=== PATIENT | female | born 1955 | race African-American/Black ===

== ENCOUNTER 2020-05-09 11:55 | Outpatient (CLI) | payer MEDICARE, MEDICAID, SELFPAY ==
--- NOTE | ~2020-05-09 | MM_ITS ---
EXAMINATION: MM screening anna BI w ольга HISTORY: Screening TECHNIQUE: Craniocaudal and mediolateral oblique 3-D tomosynthesis images were obtained and synthetic 2-D images were generated. CAD analysis was submitted and interpreted. COMPARISON: No prior mammogram is available for comparison at this institution. BREAST PARENCHYMAL COMPOSITION: There are scattered areas of fibroglandular density. FINDINGS: There are benign-appearing bilateral axillary lymph nodes. There is no evidence of suspicio us mass, calcification, or architectural distortion to suggest malignancy in either breast. There has been no suspicious interval change. IMPRESSION: 1. No mammographic evidence of malignancy. 2. Recommend routine screening mammography in one year. BI-RADS Category 1: Negative Reviewed, dictated and finalized at location D.
== END 2020-05-09 11:56 | disposition home or self-care (01) ==
PROVIDERS: PCP Family Medicine; Visit Provider Family Medicine
DX: Z12.31 Encounter for screening mammogram for malignant neoplasm of breast (principal)
CPT/HCPCS: 77063; 77067

== ENCOUNTER 2022-11-24 17:07 | Emergency (ER) | payer MEDICARE, MEDICAID, SELFPAY ==
[2022-11-24 18:14] VITALS: BP 137/83; PULSE 77; RESP 20; TEMP 36.9; O2SAT 100
--- NOTE | 2022-11-24 20:56 | PC.NURSE ---
Pt called for repeat vitals, no answer
--- NOTE | 2022-11-24 21:57 | PC.NURSE ---
Called at this time to be roomed with no response at this time.
== END 2022-11-24 22:59 | disposition left against medical advice (07) ==
PROVIDERS: PCP Family Medicine
DX: K59.00 Constipation, unspecified (principal)
CPT/HCPCS: 99199

== ENCOUNTER 2023-12-01 19:47 | Observation (INO) | payer MEDICARE, MEDICAID, SELFPAY ==
[2023-12-01] VITALS (14 sets, daily range): BP systolic 111–157; BP diastolic 72–140; PULSE 65–74; RESP 17–24; TEMP 36.4–36.6; O2SAT 93–100
--- NOTE | ~2023-12-01 | XR_ITS ---
EXAMINATION: XR chest 2V Exam Date/Time: 12/01/2023 20:17 COLLECTION OFFICER HISTORY: SOB with exertion Comparison: 11/18/2014; CTPA 11/19/2014. RESULT: Lines, tubes, and devices: None. Lungs and pleura: Moderate diffuse reticular opacities, with irregular groundglass and consolidative opacities, most pronounced in the mid and lower lungs bilaterally. Cardiomediastinal silhouette: Stable. Other: No acute osseous or upper abdominal finding. IMPRESSION: Moderate interstitial edema versus multifocal infection, possibly overlying chronic interstitial/emph ysematous change. Reviewed, dictated and finalized at location K. ECTION OFFICER IMPRESSION: Moderate interstitial edema versus multifocal infection, possibly overlying chr onic interstitial/emphysematous change.
--- NOTE | 2023-12-01 20:01 | ECG_ITS ---
Measurements Intervals [place] Rate: 71 P: 48 WV: 191 QRS: -33 QRSD: 91 T: 74 QT: 367 QTc: 401 Interpretive Statements SINUS RHYTHM MARKED LEFT AXIS DEVIATION [QRS AXIS < -30] NONSPECIFIC T-WAVE ABNORMALITY NO PREVIOUS ECG AVAILABLE FOR COMPARISON Electronically Signed On 12-02-2023 16:25:42 NEWSPAPER LIBRARY MANAGER by Staci Mckinney M.D.
[2023-12-01] MEDS: methylPREDNISolone SOD SUCC 125 MG VIAL IV PUSH (20:49)
[2023-12-01] MEDS: IPRATROPIUM 0.5 MG/ALBUTEROL SULFATE 2.5 MG AMPUL.NEB 3 ML INHALATION (20:55)
--- NOTE | 2023-12-01 20:55 | ED.GENADULT ---
HPI - General Adult General Chief complaint: Shortness of Breath/Dyspnea Stated complaint: sob Time Seen by Provider: 12/01/23 20:15 History of Present Illness HPI narrative: Patient 68-year-old female who presents emergency department with chief complaint of shortness of breath. Patient reports that she has prior history of COPD reports he has increasing shortness of breath. Patient reports she does not wear home oxygen and reports that she was seen elbow [facility] did not feel as though they were doing anything for her and left hospital even though she was offered admission. The patient denies fever reports that she has not had a fever reports that she has not had a productive cough. Related Data Home Medications Medication Instructions Recorded Confirmed albuterol 90 mcg/actuation aerosol 90 mcg inhalation PRN PRN 12/02/23 12/02/23 inhaler Shortness Of Breath Or Wheezing Allergies Allergy/AdvReac Type Severity Reaction Status Date / Time ampicillin Allergy Unknown Unknown Verified 12/02/23 00:34 Review of Systems Review of Systems: A 10 system review of systems was completed on the patient and is negative except for what is stated in the HPI. Nursing and ancillary documentation was reviewed. 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 She raised 3 children who are all healthy. 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 She used to smoke a pack of cigarettes per day but quit smoking in 2012. She denies any significant alcohol use. Code status: DNR/DNI (per patient request) Smoking status: Former smoker Alcohol intake: never Substance use: never Substance use type: does not use Do You Feel Safe in your Home?: Yes Lack of Transportation: YES Lack of Food: Never True Current Housing: I Have Housing Concerned About Future Housing: No Difficulty Paying Gas/Electric Bills: No Difficulty Paying for Meds: No Currently Unemployed: No Education: Grade School Difficulty w/ Childcare or Family Care: No Spiritual care concerns: No Exam Narrative: GENERAL: Well-appearing, well-nourished, and in mild acute respiratory distress. HEAD: Normocephalic, atraumatic. EYES: PERRLA and EOMI. ENT: Nares clear, no rhinorrhea or epistaxis. Mucous membranes moist. NECK: Supple. CHEST: Clear to auscultation. No respiratory distress. HEART: Regular rate and rhythm. No murmur heard. Normal peripheral pulses. ABDOMEN: Soft, nontender, nondistended, normal active bowel sounds. EXTREMITIES: Normal range of motion. No edema. SKIN: Warm, dry, no rash. NEURO: No focal deficits. Alert and oriented x3. PSYCH: Normal mood and affect. Course Vital Signs Vital signs: Vital Signs Temperature 36.4 C 12/01/23 19:56 Pulse Rate 73 12/01/23 19:56 Respiratory Rate 24 H 12/01/23 19:56 Blood Pressure 111/95 H 12/01/23 19:56 Pulse Oximetry 100 12/01/23 19:56 Oxygen Delivery Room Air 12/01/23 19:56 Temperature 37.1 C 12/02/23 00:13 Pulse Rate 72 12/02/23 02:13 Respiratory Rate 20 12/02/23 02:13 Blood Pressure 140/98 H 12/02/23 00:13 Pulse Oximetry 1
[2023-12-01 21:07] LABS: Basophils Percent Auto 0.5 % (0.2-1.2); Eosinophils Absolute Auto 0.2 K/mm3 (0-0.3); Eosinophils Percent Auto 5.9 % (0-4.4); Hematocrit 31.5 % (37.0-47.0); Hemoglobin 9.8 g/dL (12.0-15.0); Immature Granulocyte Absolute 0.01 K/mm3 (0.00-0.031); Immature Granulocyte Percent A 0.3 % (0-0.5); Lymphocytes Absolute Auto 1.57 K/mm3 (0.9-3.2); Lymphocytes Percent Auto 42.2 % (18.3-44.2); Mean Corpuscular HGB Conc 31.1 g/dl (32-36); Mean Corpuscular Hemoglobin 31.6 pg (26-34); Mean Corpuscular Volume 101.6 fl (80-100); Mean Platelet Volume 9.9 fl (7.4-10.4); Monocytes Absolute Auto 0.4 K/mm3 (0.1-0.6); Monocytes Percent Auto 11.3 % (2.6-8.5); Neutrophils Absolute Auto 1.5 K/mm3 (1.3-6.7); Neutrophils Percent Auto 39.8 % (45.5-73.1); Platelet Count Result 232 k/mm3 (150-375); White Blood Count 3.7 K/mm3 (4.5-10.0)
[2023-12-01 21:17] LABS: Alanine Aminotransferase 45 U/L (6-35); Albumin Level 3.9 g/dL (3.5-5.1); Alkaline Phosphatase 94 U/L (38-126); Anion Gap 8 mmol/L (8-16); Aspartate Amino Transferase 54 U/L (14-36); Bilirubin,Total 0.6 mg/dL (0.2-1.3); Blood Urea Nitrogen 50 mg/dL (7-17); Calcium 9.2 mg/dL (8.4-10.2); Carbon Dioxide 16 mmol/L (22-30); Chloride 112 mmol/L (98-107); Estimated CRCL calculation 24 ml/min; Estimated Glomerular Filt Rate 39; Glucose 125 mg/dL (65-110); Potassium 4.4 mmol/L (3.4-5.0); Sodium 136 mmol/L (137-145)
[2023-12-01 21:32] LABS: NT Pro B Type Natriuretic Pept 233 pg/mL (19.9-100); Troponin I < 0.012 ng/mL (0.000-0.034)
[2023-12-01 21:45] LABS: Influenza A QL RT-PCR Negative (Negative); Influenza B QL RT-PCR Negative (Negative); RSV RNA, RT-PCR Negative (Negative); SARS-CoV-2 RNA PCR Negative (Negative)
[2023-12-01 22:02] LABS: Appearance Urine Cloudy (Clear); Bacteria Urine 2+ /hpf; Bilirubin Urine Negative (Negative); Blood Urine Negative (Negative); Color Urine Yellow (Yellow); Glucose Urine UA Negative (Negative); Ketones Urine Negative (Negative); Leukocyte Esterase Ur 3+ LEU/UL (Negative); Need Manual Microscopic Reviewed; Nitrate Urine Negative (Negative); Protein Urine Negative (Negative); RBC Urine 0-2 /hpf (0-2); Specific Grav Ur 1.015 (1.001-1.035); Squamous Epithelial Cell Urine Few /hpf (Few); Urobilinogen Urine 0.2 mg/dL (<2.0); WBC Urine 51-100 /hpf; pH Urine 5.5 (5.0-9.0)
[2023-12-01 22:04] LABS: Add Urine Microscopic? YES
--- NOTE | 2023-12-01 22:51 | PM.IMHP ---
H&P: HPI History of Present Illness Date/Time: 12/01/23 22:51 Chief Complaint: Shortness of breath Narrative: 68-year-old female with past medical history of COPD, chronic kidney disease and essential hypertension who presented to ER with shortness of breath on exertion. The patient had just been to [facility] ER and had left against medical advice When they wanted to admit her because she felt like they were not doing anything for her. She arrived to the ER tachypneic the nursing staff put on oxygen for comfort. The patient reports that she has been having a cough for approximately 2 weeks. The cough is been hacking and dry. However she will cough until the point that she gags. She reports that she has thick mucus in the back of her throat that she cannot get up. She has not had any fevers or chills. She denies any ill contacts. The her viral PCRs in the ER were negative. She reports that she has been having decreased appetite since September. She reports significant weight loss. She denies any history of heart failure lower extremity swelling or chest pain. Denies heart history. She reports decreased bowel movements due to decreased appetite. She denies any active constipation. She denies difficulties with urination urine is frequency or urgency. She has not had any urinary incontinence. The patient had been evaluated at [facility] earlier in the day. She left hospital against medical advice at that time because they were only offering her a 24 hour hospital stay and decided to come to our hospital because it is the hospital where her son is usually hospitalized. She is usually evaluated at [facility] when she has any problems. The patient does not know her home medications. She does not want to call her son to get the list of medications that she left in his car. There are no medications listed on the patient's external med history. Patient reports that she is on a cholesterol med a blood pressure med and multiple inhalers. Review of Systems Review of Systems: 12 systems were reviewed with pertinent positives and negatives per HPI. Except as documented in the HPI, all other systems were reviewed and are negative. [facility] Past Medical History Medical History (Updated 12/02/23 @ 04:45 by Lauryn Reyna DO) Anemia in chronic kidney disease Stage II per the patient's report COPD (chronic obstructive pulmonary disease) CVA (cerebral vascular accident) (2005) Residual right-sided weakness Eczema Essential hypertension Hyperlipidemia Surgical History Surgical History (Updated 12/02/23 @ 04:45 by Lauryn Renya DO) History of 3 sections History of bilateral knee replacement 2015 and 2018 respectively History of tonsillectomy Family History Family History (Updated 12/02/23 @ 04:39 by Lauryn Reyna DO) Mother Asthma Father Family history unknown Social History Social History (Updated 12/02/23 @ 04:40 by Lauryn Reyna DO) Social History: Patient is single is never been . She raised 3 children who are all healthy. 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 She used to smoke a pack of cigarettes per day but quit smoking in 2012. She denies any significant alcohol use. Code status: DNR/DNI (per patient request) Smoking status: Former smoker Alcohol intake: never Substance use: never Substance use type: does not use Do You Feel Safe in your Home?: Yes Lack of Transportation: YES Lack of Food: Never True Current Housing: I Have Housing Concerned About Future Housing: No Difficulty Paying Gas/Electric Bills: No Difficulty Paying for Meds: No Currently Unemployed: No Education: Grade School Difficulty w/ Childcare or Family Care: No Spiritual care concerns: No Meds Home Medications and Allergies Home Medications Medication Instructions Recorded
[2023-12-01 23:40] LABS: Troponin I < 0.012 ng/mL (0.000-0.034)
[2023-12-01] MEDS: AZITHROMYCIN 500 MG/NS 250 ML 500 MG/250 ML BAG 250 MG IVPB (23:43)
[2023-12-02] VITALS (11 sets, daily range): BP systolic 140–160; BP diastolic 86–98; PULSE 68–85; RESP 16–20; TEMP 36.6–37.1; O2SAT 96–100; BMI 24.2
[2023-12-02 00:02] LABS: Procalcitonin 0.3 ng/mL
--- NOTE | 2023-12-02 00:12 | ADMGEN ---
This patient, Susan Vang, was admitted to 2 Medical Room 242-01. Patient/family oriented to hospital policies and general routines including ID bracelet, bed and alarms, visiting hours, pain management, procedures, bathroom and other care routines, personal items, smoking policy, room service/diet, and visiting hours. Information on how to activate the Rapid Response Team has been discussed. Patient/Family are encouraged to report perceived risks to care and to ask questions if they do not understand what they are told or what they should do.
--- NOTE | 2023-12-02 00:37 | PC.NURSE ---
Pt is unable to recall medications. Pt stated that she gets her medications from [facility] but there are no medications listed on the external medication hx.
[2023-12-02] MEDS: IPRATROPIUM 0.5 MG/ALBUTEROL SULFATE 2.5 MG AMPUL.NEB 3 ML INHALATION ×3 (02:06→13:42)
[2023-12-02] MEDS: SODIUM CHLORIDE 0.9% IV 1,000 ML 100 ML IV CONT (02:46)
[2023-12-02] MEDS: methylPREDNISolone SOD SUCC 125 MG VIAL 60 MG IV PUSH ×2 (05:29→14:12)
[2023-12-02 06:20] LABS: Alanine Aminotransferase 43 U/L (6-35); Albumin Level 3.6 g/dL (3.5-5.1); Alkaline Phosphatase 95 U/L (38-126); Anion Gap 8 mmol/L (8-16); Aspartate Amino Transferase 52 U/L (14-36); Bilirubin,Total 0.3 mg/dL (0.2-1.3); Blood Urea Nitrogen 46 mg/dL (7-17); Calcium 8.9 mg/dL (8.4-10.2); Carbon Dioxide 17 mmol/L (22-30); Chloride 114 mmol/L (98-107); Estimated CRCL calculation 26 ml/min; Estimated Glomerular Filt Rate 42; Glucose 165 mg/dL (65-110); Sodium 139 mmol/L (137-145)
[2023-12-02 07:24] LABS: Hepatitis B Surface Antigen Negative (Negative)
[2023-12-02 07:29] LABS: HAV RESULT Negative (Negative); Hepatitis B Core IgM Result Negative (Negative)
[2023-12-02 07:35] LABS: Hemoglobin 8.7 g/dL (12.0-15.0); Lymphocytes Absolute Auto 0.83 K/mm3 (0.9-3.2); Lymphocytes Percent Auto 37.1 % (18.3-44.2); Mean Corpuscular HGB Conc 31.1 g/dl (32-36); Mean Corpuscular Hemoglobin 31.8 pg (26-34); Mean Corpuscular Volume 102.2 fl (80-100); Mean Platelet Volume 9.9 fl (7.4-10.4); Monocytes Absolute Auto 0.1 K/mm3 (0.1-0.6); Monocytes Percent Auto 2.2 % (2.6-8.5); Neutrophils Absolute Auto 1.4 K/mm3 (1.3-6.7); Neutrophils Percent Auto 60.7 % (45.5-73.1); Platelet Count Result 215 k/mm3 (150-375); Red Blood Count 2.74 M/mm3 (4.2-5.4); Red Cell Distribution Width 16.6 % (11.5-14.5); White Blood Count 2.2 K/mm3 (4.5-10.0)
[2023-12-02 07:41] LABS: Hepatitis C Virus Antibody Negative (Negative)
[2023-12-02 08:57] LABS: Hemoglobin A1C 5.4 % (<5.7)
[2023-12-02] MEDS: ENOXAPARIN 30 MG/0.3 ML SYRINGE SUB-Q (10:08)
--- NOTE | 2023-12-02 14:01 | PM.DS ---
DS: Admitting Diagnosis Discharge Date 12/02/23 Admitting Diagnosis COPD exacerbation DS: Discharge Diagnosis Discharge Diagnosis (1) COPD (chronic obstructive pulmonary disease): Code(s): J44.9 - Chronic obstructive pulmonary disease, unspecified Status: Acute (2) Leukopenia: Qualifiers: Leukopenia type: neutropenia Neutropenia type: due to infection Qualified Code(s): D70.3 - Neutropenia due to infection Code(s): D72.819 - Decreased white blood cell count, unspecified Status: Acute (3) Acute kidney injury: Code(s): N17.9 - Acute kidney failure, unspecified Status: Acute (4) Abnormal urinalysis: Code(s): R82.90 - Unspecified abnormal findings in urine Status: Acute DS: Summary Hospital Course Hospital Course: 68-year-old female with past medical history of COPD, chronic kidney disease and essential hypertension who presented to ER with shortness of breath on exertion.? The patient had just been to [facility] ER and had left against medical advice? When they wanted to admit her because she felt like they were not doing anything for her.? She arrived to the ER tachypneic the nursing staff put on oxygen for comfort.? She was not hypoxic upon arrival nor has she been during hospital stay.The patient reports that she has been having a cough for approximately 2 weeks.? The cough is been hacking and dry. her viral PCRs were negative Patient was given IV steroids, antibiotics and nebulizer treatments. He patient states that she had not been taking her at home inhalers during her acute illness. Patient states that condition overall improved after nebulizer treatments and steroid. Patient not requiring oxygen at this time. Will discharge patient on antibiotics, steroids and cough medicine. Urine was abnormal but patient did not have any signs of UTI. Will call patient if antibiotics need to be changed. Her labs and vital signs are stable and she is medically clear for discharge at this time. Time Spent with Patient Time attestation: Total time spent providing and/or coordinating discharge services: DS: Data Data Completed and Pending Labs on day of discharge: Labs from last 24 hours 12/02/23 12/01/23 12/01/23 05:21 23:10 22:46 WBC 2.2 L RBC 2.74 L Hgb 8.7 L Hct 28.0 L MCV 102.2 H MCH 31.8 MCHC 31.1 L RDW 16.6 H Plt Count 215 MPV 9.9 Immature Gran % (Auto) 0.0 Neut % (Auto) 60.7 Lymph % (Auto) 37.1 Martin % (Auto) 2.2 L Eos % (Auto) 0.0 Baso % (Auto) 0.0 L Lymph # (Auto) 0.83 L Martin # (Auto) 0.1 Eos # (Auto) 0.0 Baso # (Auto) 0.0 Abs Immat Gran (auto) 0.00 Absolute Neuts (auto) 1.4 Absolute Nucleated RBC 0.0 Nucleated RBC % 0.0 Sodium 139 Potassium 5.0 Chloride 114 H Carbon Dioxide 17 L Anion Gap 8 BUN 46 H Creatinine 1.50 H Estim Creat Clear Calc 26 Estimated GFR 42 L Glucose 165 H Hemoglobin A1c 5.4 Lactic Acid 1.0 Calcium 8.9 Total Bilirubin 0.3 AST 52 H ALT 43 H Alkaline Phosphatase 95 Troponin I < 0.012 NT-Pro-B Natriuret Pep Total Protein 9.0 H Albumin 3.6 Procalcitonin 0.3 Urine Color Urine Appearance Urine pH Ur Specific [place] Urine Protein Urine Glucose (UA) Urine Ketones Ur Blood (Man) Urine Nitrate Urine Bilirubin Urine Urobilinogen Add Ur Microanalysis Leukocyte Esterase Rfl Urine RBC Urine WBC Ur Squamous Epith Cells Urine Bacteria Urine Casts Hepatitis A IgM Ab Negative Hep Bs Antigen Negative Hep B Core IgM Ab Negative Hepatitis C Ab Screen Negative Influenza A (RT-PCR) Influenza B (RT-PCR) RSV (RT-PCR) SARS-CoV-2 RNA (RT-PCR) 12/01/23 12/01/23 21:46 20:42 WBC 3.7 L RBC 3.10 L Hgb 9.8 L Hct 31.5 L MCV 101.6 H MCH 31.6 MCHC 31.1 L RDW 17.0 H Plt Count
[2023-12-02] MEDS: AMOXICILLIN/CLAVULANATE K 875-125 MG TAB 1 TABLET PO (14:13)
--- NOTE | 2023-12-03 09:53 | PC.NURSE ---
Urine cx is negative. IZZY Ceron aware.
== END 2023-12-02 19:45 | disposition home or self-care (01) ==
LOC: ANHED 22:27 → ANH2MED 12-02 14:06
PROVIDERS: Internal Medicine Critical Care Medicine; Preventive Medicine Aerospace Medicine; Admitting Provider Internal Medicine; Emergency Provider Emergency Medicine; PCP Internal Medicine; Visit Provider Family Medicine
DX: J44.9 Chronic obstructive pulmonary disease, unspecified (principal); D70.3 Neutropenia due to infection; N17.9 Acute kidney failure, unspecified; R82.90 Unspecified abnormal findings in urine; I12.9 Hypertensive chronic kidney disease with stage 1 through stage 4 chronic kidney disease, or unspecified chronic kidney disease; N18.2 Chronic kidney disease, stage 2 (mild); R63.0 Anorexia; I69.351 Hemiplegia and hemiparesis following cerebral infarction affecting right dominant side; D63.1 Anemia in chronic kidney disease; R94.31 Abnormal electrocardiogram [ECG] [EKG]; Z68.24 Body mass index [BMI] 24.0-24.9, adult; E78.5 Hyperlipidemia, unspecified; Z79.51 Long term (current) use of inhaled steroids; Z20.822 Contact with and (suspected) exposure to COVID-19; Z87.891 Personal history of nicotine dependence
CPT/HCPCS: 36415; 71046; 80053; 80074; 81001; 83036; 83605; 83880; 84145; 84484; 85025; 87040; 87077; 87086; 87637; 93005; 94640; 96361; 96372; 96374; 96375; 96376; 99285; A9270; G0378; J0456; J0696; J1650; J2930; J7030

== ENCOUNTER 2024-09-02 00:51 | Inpatient (IN) | payer MEDICARE, MEDICAID, SELFPAY ==
[2024-09-02] VITALS (30 sets, daily range): BP systolic 125–190; BP diastolic 53–94; PULSE 74–125; RESP 18–30; TEMP 36.4–37.1; O2SAT 84–100; BMI 19.8
--- NOTE | ~2024-09-02 | XR_ITS ---
XR chest 1V portable DATE: 09/03/2024 12:29 INDICATION: Shortness of breath TECHNIQUE: Portable upright AP chest on 09/03/2024 at 1216 hours COMPARISON: 09/02/2024 and 12/01/2023 chest radiographic examinations FINDINGS: Extensive bilateral patchy interstitial infiltrates of the lungs, much of which is chronic, present on 11/11/2023, suggesting extensive bilateral pulmonary interstitial fibrotic changes. Mild increase bilateral infiltrates since 12/01/2023 may represent progression of the extensive interstitia l fibrotic changes versus overlapping pneumonia or less likely pulmonary edema. Minimal blunted costophrenic angles; cannot exclude small pleural effusions. No pneumothorax. Heart size appears within normal range for AP projection. Osteopenia. IMPRESSION: Extensive chronic bilateral patchy interstitial changes suggesting extensive chronic bila teral pulmonary interstitial fibrosis. Superimposed pneumonia is not excluded. Clinical correlation i s advised. Reviewed, dictated and finalized at location A. [facility] IMPRESSION: Extensive chronic bilateral patchy interstitial changes suggesting extensive chronic bilateral pulmonary interstitial fibrosis. Superimposed pneum onia is not excluded. Clinical correlation is advised.
--- NOTE | ~2024-09-02 | XR_ITS ---
XR chest 1V portable DATE: 09/02/2024 02:22 INDICATION: Dyspnea TECHNIQUE: Portable AP chest on 09/02/2024 at 0220 hours COMPARISON: 12/01/2023 2 view chest FINDINGS: There are diffuse bilateral pulmonary interstitial infiltrates with some focal areas of con solidation, most prominent in the left mid and lower lung zones. The findings may be due to bilateral pneumonia and/or pulmonary edema. Heart size appears within normal range. Is aortic unfolding. No pleural effusion or pneumothorax is evident. Osteopenia. IMPRESSION: Diffuse bilateral pulmonary infiltrates suggesting pneumonia and/or pulmonary edema Reviewed, dictated and finalized at location A. [employer]
--- NOTE | ~2024-09-02 | CT_ITS ---
EXAMINATION:CT diagnostic chest wo con DATE: 09/04/2024 13:00 INDICATION: Abnormal chest radiograph. TECHNIQUE: Computed tomography (CT) of the chest was performed without intravenous contrast. Automate d exposure control and iterative reconstruction technique were employed. The dose-length product (DLP ) was 215.03 mGy-cm. COMPARISON: Chest single view 09/03/2024, chest CT 11/19/2014 FINDINGS: The lung volumes are small. There is heterogeneous distribution of septal thickening in the lungs associated with groundglass opacities and bronchiectasis and honeycombing. Calcified pulmonary nodules and calcified hilar lymph nodes are consistent with old granulomatous disease. There is a tr sb left pleural effusion. The heart size is normal. There are coronary artery calcifications. No per icardial effusion. There is mild mediastinal lymphadenopathy, likely reactive. Calcifications in the liver and spleen are consistent with old granulomatous disease. There are gallstones in the gallbladd er, which is normal in size. There is moderate thoracic spondylosis and severe cervical spondylosis. IMPRESSION: 1. Chronic interstitial lung disease in a pattern of usual interstitial pneumonia (UIP). Reviewed, dictated and finalized at location A. [facility] PET CT TECHNOLOGIST IMPRESSION: 1. Chronic interstitial lung disease in a pattern of usual interstitial pneumon ia (UIP).
--- NOTE | 2024-09-02 01:04 | ECG_ITS ---
Test Date: 2024-09-02 01:12:32 Measurements Intervals [place] Rate: 111 P: 33 UT: 156 QRS: -51 QRSD: 91 T: 83 QT: 297 QTc: 404 Interpretive Statements SINUS TACHYCARDIA LEFT AXIS DEVIATION PATTERN CONSISTENT WITH PULMONARY DISEASE BORDERLINE ST-T WAVE ABNORMALITY- HIGH LATERAL LEADS BASELINE ARTIFACT- I, II, III, AVR, AVL, AVF, V1-V6 ABNORMAL ECG No previous ECG available for comparison Electronically Signed On 09-02-2024 06:10:21 ENTERTAINER OR VARIETY ARTIST by Guido Campos D.O.
[2024-09-02] MEDS: IPRATROPIUM 0.5 MG/ALBUTEROL SULFATE 2.5 MG AMPUL.NEB 3 ML INHALATION ×4 (01:22→20:43)
[2024-09-02 01:42] LABS: Alveolar/Arterial O2 Gradient 87.3 mmHg; Base Excess ABG -4.3 mEq/l (+/-2.0); Fractional Inspired Oxygen 28 %; HCO3 ABG 18.5 mEq/l (22.0-26.0); Oxygen Content ABG 14.5 %vol (16.0-22.0); Oxygen Saturation ABG 96.5 % (95.0-100.0); Oxyhemoglobin 94.7 % THb (90.0-100.0); PCO2 ABG 27.2 mmHg (35.0-45.0); PO2 ABG 80.2 mmHg (80.0-100.0); PO2 FiO2 Ratio Arterial Blood 2.86 %; Total Hemoglobin 10.8 g/dL (12.0-18.0); pH ABG 7.451 (7.350-7.450)
[2024-09-02 01:43] LABS: Device NASAL CANNULA; Modified Allen's Test Pass; Site Drawn RIGHT RADIAL
--- NOTE | 2024-09-02 01:59 | ED_ITS ---
HPI - General Adult General Chief complaint: Shortness of Breath/Dyspnea Stated complaint: Short of breath Time Seen by Provider: 09/02/24 01:15 History of Present Illness HPI narrative: patient is a 69-year-old female who presents emergency department with chief complaint of shortness of breath and generalized weakness patient has prior history of COPD reports she has been having a cough and has had problems with increasing shortness of breath over the last several days patient reports that she feels extremely short of breath this evening reports that family says that she has been weaker than normal over the last couple of days Related Data Home Medications Medication Instructions Recorded Confirmed albuterol 90 mcg/actuation aerosol 90 mcg inhalation PRN PRN 12/02/23 12/02/23 inhaler Shortness Of Breath Or Wheezing Allergies Allergy/AdvReac Type Severity Reaction Status Date / Time ampicillin Allergy Unknown Unknown Verified 09/02/24 00:52 Review of Systems Review of Systems: A 10 system review of systems was completed on the patient and is negative except for what is stated in the HPI. Nursing and ancillary documentation was reviewed. [facility] Past Medical History Medical History Anemia in chronic kidney disease Stage II per the patient's report COPD (chronic obstructive pulmonary disease) CVA (cerebral vascular accident) (2005) Residual right-sided weakness Eczema Essential hypertension Hyperlipidemia Surgical History Surgical History History of 3 sections History of bilateral knee replacement 2015 and 2017 respectively History of tonsillectomy Family History Family History Mother Asthma Father Family history unknown Social History Social History Social History: Patient is single is never been . She raised 3 children who are all healthy. 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 She used to smoke a pack of cigarettes per day but quit smoking in 2012. She denies any significant alcohol use. Code status: DNR/DNI (per patient request) Smoking status: Former smoker Alcohol intake: never Substance use: never Substance use type: does not use Do You Feel Safe in your Home?: Yes Lack of Transportation: YES Lack of Food: Never True Current Housing: I Have Housing Concerned About Future Housing: No Difficulty Paying Gas/Electric Bills: No Difficulty Paying for Meds: No Currently Unemployed: No Education: Grade School Difficulty w/ Childcare or Family Care: No Spiritual care concerns: No Exam Narrative: GENERAL: Well-appearing, well-nourished, and in no acute distress. HEAD: Normocephalic, atraumatic. EYES: PERRLA and EOMI. ENT: Nares clear, no rhinorrhea or epistaxis. Mucous membranes moist. NECK: Supple. CHEST: Clear to auscultation. No respiratory distress. HEART: Regular rate and rhythm. No murmur heard. Normal peripheral pulses. ABDOMEN: Soft, nontender, nondistended, normal active bowel sounds. EXTREMITIES: Normal range of motion. No edema. SKIN: Warm, dry, no rash. NEURO: No focal deficits. Alert and oriented x3. PSYCH: Normal mood and affect. Course Vital Signs Vital signs: Vital Signs Pulse Oximetry 95 09/02/24 01:00 Oxygen Delivery Nasal Cannula 09/02/24 01:00 Oxygen Flow Rate 3 09/02/24 01:00 Temperature 37.1 C 09/02/24 01:03 Pulse Rate 101 H 09/02/24 03:28 Respiratory Rate 25 H 09/02/24 03:28 Blood Pressure 165/94 H 09/02/24 03:28 Pulse Oximetry 95 09/02/24 03:28 Oxygen Delivery Room Air 09/02/24 01:03 Oxygen Flow Rate 3 09/02/24 01:00 Medical Decision Making [facility] Narrative Medical decision making narrative: differential diagnosis includes COPD exacerbation, pneumonia, CHF, viral illness, renal failure laboratory studies were obtained on the patient showed a VBG with pH 7.451 a pCO2 of 27.2 PO2 was 80 EKG showed no acute ischemic changes Vital Signs Vital Signs: Vital Signs Pulse Oximetry 95 09/02/24 01:00 Oxygen Delivery Nasal Cannula 09/02/24 01:00 Oxygen Flow Rate 3 09/02/24 01:00 Temperature 37.1 C 09/02/24 01:03 Pulse Rate 101 H 09/02/24 03:28 Respiratory Rate 25 H 09/02/24 03:28 Blood Pressure 165/94 H 09/02/24 03:28 Pulse Oximetry 95 09/02/24 03:28 Oxygen Delivery Room Air 09/02/24 01:03 Oxygen Flow Rate 3 09/02/24 01:00 Lab Data 09/02/24 02:06 09/02/24 02:55 Labs: Lab Results 09/02/24 09/02/24 09/02/24 Range/Units 02:06 02:55 03:13 WBC 5.1 (4.5-10.0) K/mm3 RBC 2.77 L (4.2-5.4) M/mm3 Hgb 9.6 L (12.0-15.0) g/dL Hct 29.6 L (37.0-47.0) % MCV 106.9 H (80-100) fl MCH 34.7 H (26-34) pg MCHC 32.4 (32-36) g/dl RDW 13.2 (11.5-14.5) % Plt Count 188 (150-375) k/mm3 MPV 10.1 (7.4-10.4) fl Immature Gran % (Auto) 0.6 H (0-0.5) % Neut % (Auto) 56.8 (45.5-73.1) % Lymph % (Auto) 25.8 (18.3-44.2) % [place] % (Auto) 10.7 H (2.6-8.5) % Eos % (Auto) 5.5 H (0-4.4) % Baso % (Auto) 0.6 (0.2-1.2) % Lymph # (Auto) 1.32 (0.9-3.2) K/mm3 [place] # (Auto) 0.6 (0.1-0.6) K/mm3 Eos # (Auto) 0.3 (0-0.3) K/mm3 Baso # (Auto) 0.0 (0.0-0.1) K/mm3 Abs Immat Gran (auto) 0.03 (0.00-0.031) K/mm3 Absolute Neuts (auto) 2.9 (1.3-6.7) K/mm3 Absolute Nucleated RBC 0.000 (0.0-0.012) K/mm3 Nucleated RBC % 0.0 (0.0-0.2) % Platelet Estimate Adequate (Adequate) Ovalocytes 1+ Schistocytes None seen PT 15.8 H (11.1-14.7) Seconds INR 1.2 APTT 34.7 (22.3-36.8) Seconds Sodium Cancelled 135 L Potassium Cancelled 4.6 Chloride Cancelled 108 H Carbon Dioxide Cancelled 19 L Anion Gap Cancelled 8 BUN Cancelled 52 H Creatinine Cancelled 2.40 H Estim Creat Clear Calc Cancelled 16 Estimated GFR Cancelled 24 L Glucose Cancelled 102 Lactic Acid 1.1 (0.7-2.0) mmol/L Calcium Cancelled 8.8 Total Bilirubin Cancelled 0.7 AST Cancelled 34 ALT Cancelled 13 Alkaline Phosphatase Cancelled 114 Troponin I < 0.012 (0.000-0.034) ng/mL NT-Pro-B Natriuret Pep 759 H (19.9-100) pg/mL Total Protein Cancelled 9.0 H Albumin Cancelled 3.6 Procalcitonin 0.5 ng/mL Influenza A (RT-PCR) Pending Influenza B (RT-PCR) Pending RSV (RT-PCR) Pending SARS-CoV-2 RNA (RT-PCR) Pending ABG Data ABG results: 09/02/24 01:21 Puncture Site Right radial ABG pH 7.451 H ABG pCO2 27.2 L ABG pO2 80.2 ABG PO2/FiO2 Ratio 2.86 ABG HCO3 18.5 L ABG O2 Saturation 96.5 ABG O2 Content 14.5 L ABG Base Excess -4.3 A-a Gradient 87.3 Oxyhemoglobin 94.7 Total Hemoglobin 10.8 L O2 Delivery Device Nasal cannula O2 Liters/Min 2.0 FiO2 28 Discharge Plan Discharge Clinical Impression: Acute exacerbation of chronic obstructive pulmonary disease Patient Disposition: Still a Patient Condition: Stable Prescriptions: No Action albuterol 90 mcg/actuation Aerosol 90 mcg INHALATION PRN PRN (Reason: Shortness Of Breath Or Wheezing) azithromycin 250 mg tablet 250 mg PO DAILY Qty: 4 0RF cefdinir 300 mg capsule 300 mg PO Q12H Qty: 12 0RF Follow-up/Referrals: Familia,eRji Smith MD [Primary Care Provider] - Time of Disposition: 03:37
[2024-09-02 02:15] LABS: Basophils Percent Auto 0.6 % (0.2-1.2); Eosinophils Absolute Auto 0.3 K/mm3 (0-0.3); Eosinophils Percent Auto 5.5 % (0-4.4); Hematocrit 29.6 % (37.0-47.0); Hemoglobin 9.6 g/dL (12.0-15.0); Immature Granulocyte Absolute 0.03 K/mm3 (0.00-0.031); Immature Granulocyte Percent A 0.6 % (0-0.5); Lymphocytes Absolute Auto 1.32 K/mm3 (0.9-3.2); Lymphocytes Percent Auto 25.8 % (18.3-44.2); Mean Corpuscular HGB Conc 32.4 g/dl (32-36); Mean Corpuscular Hemoglobin 34.7 pg (26-34); Mean Corpuscular Volume 106.9 fl (80-100); Mean Platelet Volume 10.1 fl (7.4-10.4); Monocytes Absolute Auto 0.6 K/mm3 (0.1-0.6); Monocytes Percent Auto 10.7 % (2.6-8.5); Neutrophils Absolute Auto 2.9 K/mm3 (1.3-6.7); Neutrophils Percent Auto 56.8 % (45.5-73.1); Platelet Count Result 188 k/mm3 (150-375); Red Blood Count 2.77 M/mm3 (4.2-5.4); Red Cell Distribution Width 13.2 % (11.5-14.5); White Blood Count 5.1 K/mm3 (4.5-10.0)
[2024-09-02] MEDS: BENZONATATE 100 MG CAPSULE 200 MG PO (02:20)
[2024-09-02] MEDS: methylPREDNISolone SOD SUCC 125 MG VIAL IV PUSH (02:20)
[2024-09-02 02:26] LABS: Ovalocytes 1+; Platelet Estimate Adequate (Adequate); Schistocytes None Seen
[2024-09-02 02:37] LABS: NT Pro B Type Natriuretic Pept 759 pg/mL (19.9-100); Troponin I < 0.012 ng/mL (0.000-0.034)
[2024-09-02 03:10] LABS: INR 1.2; Lactic Acid Reflex 1.1 mmol/L (0.7-2.0); Prothrombin Time 15.8 Seconds (11.1-14.7)
[2024-09-02 03:11] LABS: Partial Thromboplastin Time 34.7 Seconds (22.3-36.8)
[2024-09-02 03:12] LABS: Alanine Aminotransferase 13 U/L (6-35); Albumin Level 3.6 g/dL (3.5-5.1); Alkaline Phosphatase 114 U/L (38-126); Anion Gap 8 mmol/L (4-12); Aspartate Amino Transferase 34 U/L (14-36); Bilirubin,Total 0.7 mg/dL (0.2-1.3); Blood Urea Nitrogen 52 mg/dL (7-17); Calcium 8.8 mg/dL (8.4-10.2); Carbon Dioxide 19 mmol/L (22-30); Chloride 108 mmol/L (98-107); Estimated CRCL calculation 16 ml/min; Estimated Glomerular Filt Rate 24; Glucose 102 mg/dL (65-110); Potassium 4.6 mmol/L (3.4-5.0); Sodium 135 mmol/L (137-145)
[2024-09-02 03:28] LABS: Procalcitonin 0.5 ng/mL
[2024-09-02 03:52] LABS: Influenza A QL RT-PCR Negative (Negative); Influenza B QL RT-PCR Negative (Negative); RSV RNA, RT-PCR Negative (Negative); SARS-CoV-2 RNA PCR Negative (Negative)
[2024-09-02] MEDS: SODIUM CHLORIDE 0.9% IV 1,000 ML 999 ML IV CONT (04:11)
--- NOTE | 2024-09-02 04:12 | PM.IMHP ---
H&P: HPI History of Present Illness Date/Time: 09/02/24 04:12 Chief Complaint: Shortness of breath Narrative: 69-year-old female with a past medical history of COPD, chronic kidney disease, essential hypertension and noncompliance with medication regimen who presented to the ER with shortness of breath. Patient is a poor historian due to confusion. Confusion is a new finding compared to when I last saw the patient in November of 2023. The patient reports that she has been coughing for about a week. She has been getting more more short of breath with more severe symptoms this evening. She reports producing yellow sputum. It is unclear if she always produces yellow sputum for the sputum color changes different. But nursing staff reports the patient has copious sputum production and is coughing a significant amount of sputum into an emesis bag. The patient reports that she is chronically chilled but at the time of my evaluation the patient's skin was noticeably hot. It sounds as if the patient stop taking a lot of her medications because she felt that the number of medications were causing her nausea and GI upset. The patient's weight has decreased 11 kg since her last hospital stay. She reports that she has no appetite. She states that if she does try to take medications they make her stomach even more upset than it is at baseline. She denies any hematochezia, melena or coffee-ground emesis. She reports chest pain with deep breathing and with coughing. She denies any rhinorrhea nasal congestion or sore throat. She denies difficulty swallowing. She states that she does not produce much bowel movements due to low appetite. She denies any known ill contacts. Patient is also generally weak. At the time of my evaluation the patient was able to sit up in bed unassisted. She appeared frail had respiratory rate of 33 with accessory muscle use. She denies any wheezing on exam patient marked decreased breath sounds bilaterally. She did test positive for RSV in the ER. Chest x-ray was personally reviewed interpreted and demonstrated acute interstitial findings on top the patient's chronic lung findings. Patient was seen and examined in the ER and was noted to be in respiratory distress. Her oxygen saturations were holding on 3 L nasal cannula but patient is not on oxygen at home. Viral panel was negative for the vanesa pathogens. Blood cultures were obtained and are pending. Electrolyte panel demonstrated acute on chronic kidney disease Review of Systems Review of Systems: Review of systems was difficult to obtain due to the patient's confusion. Patient is only alert oriented to self and place. [facility] Past Medical History Medical History (Updated 09/02/24 @ 07:36 by Lauryn Reyna DO) Anemia in chronic kidney disease Anxiety Chronic kidney disease, stage 3b COPD (chronic obstructive pulmonary disease) CVA (cerebral vascular accident) (2005) Residual right-sided weakness Eczema Essential hypertension Hyperlipidemia Surgical History Surgical History History of 3 sections History of bilateral knee replacement 2015 and 2017 respectively History of tonsillectomy Family History Family History Mother Asthma Father Family history unknown Social History Social History (Updated 09/02/24 @ 07:34 by Lauryn Reyna DO) Social History: Patient is single is never been . She raised 3 children who are all healthy. 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 She used to smoke a pack of cigarettes per day but quit smoking in 2012. She denies any significant alcohol use. Code status: DNR/DNI (per patient request during her hospitalization November 2023) Smoking packs per day: 0.5 Smoking cigarettes per day: 10.0 Years smoked: 35 Smoking pack-years: 17.50 Smoking status: Former smoker Tobacco type: cigarettes Alcohol intake: never Substance use: never Substance use type: does not use Do You Feel Safe in your Home?: Yes Lack of Transportation: No Lack of Food: Never True Current Housing: I Have Housing Concerned About Future Housing: No Difficulty Paying Gas/Electric Bills: No Difficulty Paying for Meds: No Currently Unemployed: No Education: Grade School Difficulty w/ Childcare or Family Care: No Spiritual care concerns: No Meds Home Medications and Allergies Home Medications Medication Instructions Recorded Confirmed Type albuterol sulfate 0.63 mg/3 mL 0.63 mg continuous nebulization BID 09/02/24 09/02/24 History solution for nebulization albuterol sulfate 90 mcg/actuation 2 puff inhalation BID 09/02/24 09/02/24 History aerosol inhaler alendronate 70 mg tablet 70 mg PO WEEKLY 09/02/24 09/02/24 History atorvastatin 20 mg tablet 20 mg PO DAILY 09/02/24 09/02/24 History clopidogrel 75 mg tablet 75 mg PO DAILY 09/02/24 09/02/24 History fluoxetine 40 mg capsule 40 mg PO DAILY 09/02/24 09/02/24 History fluticasone propionate 50 1 spray intranasal BID 09/02/24 09/02/24 History mcg/actuation nasal spray,suspension meclizine 25 mg tablet 25 mg PO PRN PRN Dizziness 09/02/24 09/02/24 History montelukast 10 mg tablet 10 mg PO DAILY 09/02/24 09/02/24 History Allergies Allergy/AdvReac Type Severity Reaction Status Date / Time ampicillin Allergy Unknown Unknown Verified 09/02/24 00:52 Vital Signs Vital Signs - 24 hr 09/02/24 01:03 09/02/24 01:22 09/02/24 02:30 Temperature 98.8 F Pulse Rate 125 H 99 85 Respiratory Rate 24 H 24 H 27 H Blood Pressure 125/86 155/76 H Pulse Oximetry 84 L 96 Oxygen Delivery Room Air Oxygen Flow Rate 09/02/24 01:00 09/02/24 03:28 Temperature Pulse Rate 101 H Respiratory Rate 25 H Blood Pressure 165/94 H Pulse Oximetry 95 95 Oxygen Delivery Nasal Cannula Oxygen Flow Rate 3 Exam Narrative: Weight 48.3 kg BMI 18.9 Const: Other: Acutely ill-appearing, respiratory distress with tachypnea speaking in 2-3 word sentences, thin body habitus with appearance of significant weight loss compared to my prior exam HENMT: Other: Mucous membranes are dry, no oral pharyngeal erythema, significant underbite, fair dentition, head is normocephalic atraumatic, nasal cannula in place Eyes: Other: Pupils are equal and reactive, no scleral icterus, positive conjunctival pallor Neck: Other: No JVD, supple Resp: Other: Accessory muscle use, marked tachypnea, speaking in 2-3 word sentences Cardio: Other: Sinus tachycardia, bounding radial pulses, 2+ bilateral pedal pulses, no murmur GI: Other: Soft, nontender, nondistended, positive bowel sounds Back/Spine/Pelvis: Other: Mild thoracic kyphosis Skin: Other: Hot to touch, non jaundice, no pallor Neuro: Other: Patient is alert oriented to person and place, she is confused as to the month thought that the month was January despite knowing that today was Thanksgiving, she thought the year was 2027, she has no facial asymmetry, she moves all extremities equally, she has intact sensation of all extremities and can sit up in bed unassisted Extrem: Other: No clubbing, cyanosis or edema, moves all extremities equally Psych: Other: Anxious, pleasantly confused, cooperative H&P: Results Labs Labs: Laboratory Tests 09/02/24 02:06 09/02/24 02:55 09/02/24 09/02/24 09/02/24 01:21 02:06 02:55 WBC 5.1 RBC 2.77 L Hgb 9.6 L Hct 29.6 L MCV 106.9 H MCH 34.7 H MCHC 32.4 RDW 13.2 Plt Count 188 MPV 10.1 Immature Gran % (Auto) 0.6 H Neut % (Auto) 56.8 Lymph % (Auto) 25.8 Mason % (Auto) 10.7 H Eos % (Auto) 5.5 H Baso % (Auto) 0.6 Lymph # (Auto) 1.32 Mason # (Auto) 0.6 Eos # (Auto) 0.3 Baso # (Auto) 0.0 Abs Immat Gran (auto) 0.03 Absolute Neuts (auto) 2.9 Absolute Nucleated RBC 0.000 Nucleated RBC % 0.0 Platelet Estimate Adequate Ovalocytes 1+ Schistocytes None seen PT 15.8 H INR 1.2 APTT 34.7 Puncture Site Right radial ABG pH 7.451 H ABG pCO2 27.2 L ABG pO2 80.2 ABG PO2/FiO2 Ratio 2.86 ABG HCO3 18.5 L ABG O2 Saturation 96.5 ABG O2 Content 14.5 L ABG Base Excess -4.3 A-a Gradient 87.3 Oxyhemoglobin 94.7 Total Hemoglobin 10.8 L O2 Delivery Device Nasal cannula O2 Liters/Min 2.0 FiO2 28 Sodium Cancelled 135 L Potassium Cancelled 4.6 Chloride Cancelled 108 H Carbon Dioxide Cancelled 19 L Anion Gap Cancelled 8 BUN Cancelled 52 H Creatinine Cancelled 2.40 H Estim Creat Clear Calc Cancelled 16 Estimated GFR Cancelled 24 L Glucose Cancelled 102 Lactic Acid 1.1 Calcium Cancelled 8.8 Total Bilirubin Cancelled 0.7 AST Cancelled 34 ALT Cancelled 13 Alkaline Phosphatase Cancelled 114 Troponin I < 0.012 NT-Pro-B Natriuret Pep 759 H Total Protein Cancelled 9.0 H Albumin Cancelled 3.6 Procalcitonin 0.5 Influenza A (RT-PCR) Influenza B (RT-PCR) RSV (RT-PCR) SARS-CoV-2 RNA (RT-PCR) 09/02/24 03:13 WBC RBC Hgb Hct MCV MCH MCHC RDW Plt Count MPV Immature Gran % (Auto) Neut % (Auto) Lymph % (Auto) Mason % (Auto) Eos % (Auto) Baso % (Auto) Lymph # (Auto) Mason # (Auto) Eos # (Auto) Baso # (Auto) Abs Immat Gran (auto) Absolute Neuts (auto) Absolute Nucleated RBC Nucleated RBC % Platelet Estimate Ovalocytes Schistocytes PT INR APTT Puncture Site ABG pH ABG pCO2 ABG pO2 ABG PO2/FiO2 Ratio ABG HCO3 ABG O2 Saturation ABG O2 Content ABG Base Excess A-a Gradient Oxyhemoglobin Total Hemoglobin O2 Delivery Device O2 Liters/Min FiO2 Sodium Potassium Chloride Carbon Dioxide Anion Gap BUN Creatinine Estim Creat Clear Calc Estimated GFR Glucose Lactic Acid Calcium Total Bilirubin AST ALT Alkaline Phosphatase Troponin I NT-Pro-B Natriuret Pep Total Protein Albumin Procalcitonin Influenza A (RT-PCR) Negative Influenza B (RT-PCR) Negative RSV (RT-PCR) Negative SARS-CoV-2 RNA (RT-PCR) Negative Assessment and Plan Assessment and plan (1) Community acquired pneumonia: Qualifiers: Laterality: unspecified laterality Qualified Code(s): J18.9 - Pneumonia, unspecified organism Code(s): J18.9 - Pneumonia, unspecified organism Status: Acute (2) Acute hypoxic respiratory failure: Code(s): J96.01 - Acute respiratory failure with hypoxia Status: Acute (3) Acute exacerbation of chronic obstructive pulmonary disease: Code(s): J44.1 - Chronic obstructive pulmonary disease with (acute) exacerbation Status: Acute (4) Severe protein-calorie malnutrition: Code(s): E43 - Unspecified severe protein-calorie malnutrition Status: Acute (5) Acute kidney injury superimposed on stage 3b chronic kidney disease: Code(s): N17.9 - Acute kidney failure, unspecified; N18.32 - Chronic kidney disease, stage 3b Status: Acute Plan Patient has acute hypoxic respiratory failure she has markedly decreased breath sounds bilaterally and does have significant smoking history and history of COPD. I suspect at least some component of COPD exacerbation. Patient was started on scheduled nebulizer treatments and Solu-Medrol in the ER. Patient's chest x-ray also appear to be consistent with pneumonia at the time my evaluation but radiologic interpretation was pending at the time of my evaluation. I suspect there is some acute findings on top of the patient's chronic lung disease. Patient been started empiric antibiotic therapy. Blood cultures have been obtained and are pending. Will wean oxygen as tolerated. The patient is acutely confused likely due to metabolic encephalopathy from acute infection. Will treat underlying cause and monitor. Patient has acute kidney injury on chronic kidney disease likely in part due to hypovolemia and or secondary to but action. Will continue IV fluid hydration and repeat electrolyte panel in a.m.. Will avoid nephrotoxic medications when possible. Patient has severe protein calorie malnutrition. Patient has had 11 kg weight loss since November. Will consult dietitian for nutritional supplement the recommendations. Quality VTE Prophylaxis VTE prophylaxis: pharmacologic ordered (Heparin 5000 units subQ q.12 hours) Hospitalist [facility] Advance Care Plan I have confirmed that the patient's Advanced Care Plan is present, code status is documented, or surrogate decision maker is listed in patient medical record.: Yes Medication Reconciliation I have utilized all available resources to obtain, update and review the patients current medications (includes all prescriptions, OTC, herbals, cannabis, and nutritional supplements).: Yes
[2024-09-02] MEDS: SODIUM CHLORIDE 0.9% IV 1,000 ML 100 ML IV CONT ×2 (05:36→13:48)
[2024-09-02] MEDS: AZITHROMYCIN 500 MG/NS 250 ML 500 MG/250 ML BAG 250 MG IVPB (05:36)
--- NOTE | 2024-09-02 05:39 | ADMGEN ---
This patient, Susan Vang, was admitted to IMU Room 212-01. Patient/family oriented to hospital policies and general routines including ID bracelet, bed and alarms, visiting hours, pain management, procedures, bathroom and other care routines, personal items, smoking policy, room service/diet, and visiting hours. Information on how to activate the Rapid Response Team has been discussed. Patient/Family are encouraged to report perceived risks to care and to ask questions if they do not understand what they are told or what they should do.
[2024-09-02 06:52] LABS: Troponin I < 0.012 ng/mL (0.000-0.034)
[2024-09-02] MEDS: methylPREDNISolone SOD SUCC 125 MG VIAL 60 MG IV PUSH ×3 (09:30→21:25)
[2024-09-02] MEDS: ATORVASTATIN 20 MG TABLET PO (09:31)
[2024-09-02] MEDS: CLOPIDOGREL BISULFATE 75 MG TABLET PO (09:31)
[2024-09-02] MEDS: FLUoxetine HCL 20 MG CAPSULE 40 MG PO (09:31)
[2024-09-02] MEDS: MONTELUKAST SODIUM 10 MG TABLET PO (09:31)
[2024-09-02] MEDS: FLUTICASONE PROPIONATE 0.05% NA SPR 16 GM BTL (*BKC) 1 SPRAY NASAL ×2 (09:32→17:01)
[2024-09-02] MEDS: HEPARIN SODIUM 5,000 UNITS/ML VIAL 5000 UNITS SUB-Q ×2 (09:32→21:25)
--- NOTE | 2024-09-02 13:39 | PM.IMPN ---
Progress Note: A&P Assessment and Plan (1) Community acquired pneumonia: Qualifiers: Laterality: unspecified laterality Qualified Code(s): J18.9 - Pneumonia, unspecified organism Code(s): J18.9 - Pneumonia, unspecified organism Status: Acute (2) Acute hypoxic respiratory failure: Code(s): J96.01 - Acute respiratory failure with hypoxia Status: Acute (3) Acute exacerbation of chronic obstructive pulmonary disease: Code(s): J44.1 - Chronic obstructive pulmonary disease with (acute) exacerbation Status: Acute (4) Severe protein-calorie malnutrition: Code(s): E43 - Unspecified severe protein-calorie malnutrition Status: Acute (5) Acute kidney injury superimposed on stage 3b chronic kidney disease: Code(s): N17.9 - Acute kidney failure, unspecified; N18.32 - Chronic kidney disease, stage 3b Status: Acute Plan This is a 69-year-old female who presents shortness of breath and generalized weakness. She also reports some cough worsening over the past several days associated with increasing shortness of breath in the ED she was noted to be hypoxic requiring oxygen supplementation. Laboratory studies showed WBC of 5.1 hemoglobin of 9.6 creatinine 2.4 baseline of 1.4. P 759 troponin was less than 0.012. Influenza RSV and COVID swab was negative. ABG 7.45/27/80/18. Chest x-ray showed diffuse bilateral pulmonary infiltrates suggesting pneumonia and/or pulmonary edema. History of COPD Patient was started on scheduled nebulizer and Solu-Medrol in the ED. suspected COPD exacerbation with pneumonia. On ceftriaxone azithromycin MYKE on CKD stage 3 IV hydration Chronic anemia DVT prophylaxis heparin subQ Code status do not resuscitate Patient has severe protein calorie malnutrition.Patient has had 11 kg weight loss since November. Dietitian for nutritional supplement the recommendations. Subjective Date/time seen: 09/02/24 13:39 Interval history: No overnight events. Feeling a little better. Still gets short of breath with exertion. Review of Systems Review of Systems: All systems reviewed & are unremarkable except as noted in HPI and below Exam Narrative: GENERAL: Well-appearing, thin built, and in no acute distress. HEAD: Normocephalic, atraumatic. EYES: PERRLA and EOMI. ENT: Nares clear, no rhinorrhea or epistaxis. Mucous membranes moist. NECK: Supple. CHEST: Clear to auscultation. No respiratory distress. HEART: Regular rate and rhythm. No murmur heard. Normal peripheral pulses. ABDOMEN: Soft, nontender, nondistended, normal active bowel sounds. EXTREMITIES: Normal range of motion. No edema. SKIN: Warm, dry, no rash. NEURO: No focal deficits. Alert and oriented x3. PSYCH: Normal mood and affect. Objective Data Vital Signs Vital Signs: Vital Signs - 24 hr 09/02/24 01:03 09/02/24 01:22 09/02/24 02:30 Temperature 98.8 F Pulse Rate 125 H 99 85 Respiratory Rate 24 H 24 H 27 H Blood Pressure 125/86 155/76 H Pulse Oximetry 84 L 96 Oxygen Delivery Room Air Oxygen Flow Rate 09/02/24 01:00 09/02/24 03:28 09/02/24 04:53 Temperature Pulse Rate 101 H 92 Respiratory Rate 25 H 18 Blood Pressure 165/94 H 162/80 H Pulse Oximetry 95 95 97 Oxygen Delivery Nasal Cannula Oxygen Flow Rate 3 09/02/24 06:03 09/02/24 06:00 09/02/24 06:00 Temperature 97.6 F Pulse Rate 93 93 Respiratory Rate 30 H Blood Pressure 152/91 H Pulse Oximetry 98 98 Oxygen Delivery Nasal Cannula Oxygen Flow Rate 2 09/02/24 07:47 09/02/24 08:27 09/02/24 08:28 Temperature 97.7 F Pulse Rate 90 100 Respiratory Rate 20 20 Blood Pressure 154/71 H Pulse Oximetry 100 99 Oxygen Delivery Nasal Cannula Oxygen Flow Rate 2 09/02/24 08:34 09/02/24 09:19 09/02/24 11:34 Temperature 97.6 F Pulse Rate 94 80 Respiratory Rate 20 20 Blood Pressure 142/74 H Pulse Oximetry 100 99 Oxygen Delivery Room Air Oxygen Flow Rate 09/02/24 13:14 09/02/24 13:25 09/02/24 08:00 Temperature Pulse Rate 78 83 90 Respiratory Rate 20 20 Blood Pressure Pulse Oximetry Oxygen Delivery Oxygen Flow Rate 09/02/24 10:00 Temperature Pulse Rate 89 Respiratory Rate Blood Pressure Pulse Oximetry Oxygen Delivery Oxygen Flow Rate Intake/Output Intake/Output: Intake & Output 08/30/24 08/31/24 09/01/24 09/02/24 23:59 23:59 23:59 23:59 Intake Total 268 Balance 268 Meds/Results Medications: Active Medications Generic Name Dose Route Start Last Admin Trade Name Farazq PRN Reason Stop Dose Admin Acetaminophen 650 mg 09/02/24 03:37 Acetaminophen 325 Mg Tablet PO Q4H PRN Mild Pain (1-3) or Fever Albuterol/Ipratropium 3 ml 09/02/24 08:00 09/02/24 13:12 Ipratropium 0.5 Mg/Albuterol Sulfate 2.5 Mg Ampul.Neb 3 Ml INHALATION 3 ml Q6HRT DORCAS Administration Atorvastatin Calcium 20 mg 09/02/24 09:00 09/02/24 09:31 Atorvastatin 20 Mg Tablet PO 20 mg DAILY DORCAS Administration Clopidogrel Bisulfate 75 mg 09/02/24 09:00 09/02/24 09:31 Clopidogrel Bisulfate 75 Mg Tablet PO 75 mg DAILY DORCAS Administration Fluoxetine HCl 40 mg 09/02/24 09:00 09/02/24 09:31 Fluoxetine Hcl 20 Mg Capsule PO 40 mg DAILY DORCAS Administration Fluticasone Propionate 1 spray 09/02/24 09:00 09/02/24 09:32 Fluticasone Propionate 0.05% Na Spr 16 Gm Btl (*Bkc) NASAL 1 spray BID DORCAS Administration Heparin Sodium (Porcine) 5,000 units 09/02/24 09:00 09/02/24 09:32 Heparin Sodium 5,000 Units/Ml Vial SUB-Q 5,000 units Q12HR DORCAS Administration Ceftriaxone Sodium 1 gm in 50 mls @ 100 mls/hr 09/03/24 05:00 Rocephin 1 Gm/Ns 50 Ml IVPB Q24H DORCAS Azithromycin 500 mg in 250 mls @ 250 mls/hr 09/03/24 06:00 Zithromax IVPB Q24H DORCAS Sodium Chloride 1,000 mls @ 100 mls/hr 09/02/24 03:40 09/02/24 05:36 Normal Saline Iv IV CONT 100 mls/hr .Q10H DORCAS Administration Methylprednisolone Sodium Succinate 60 mg 09/02/24 08:00 09/02/24 09:30 Methylprednisolone Sod Succ 125 Mg Vial IV PUSH 60 mg Q8HR DORCAS Administration Montelukast Sodium 10 mg 09/02/24 09:00 09/02/24 09:31 Montelukast Sodium 10 Mg Tablet PO 10 mg DAILY DORCAS Administration Radiology Results: ITS Impressions Chest X-Ray 09/02/24 06:36 IMPRESSION: Diffuse bilateral pulmonary infiltrates suggesting pneumonia and/or pulmonary edema Labs Labs: Laboratory Results - last 24 hr 09/02/24 09/02/24 09/02/24 01:21 02:06 02:55 WBC 5.1 RBC 2.77 L Hgb 9.6 L Hct 29.6 L MCV 106.9 H MCH 34.7 H MCHC 32.4 RDW 13.2 Plt Count 188 MPV 10.1 Immature Gran % (Auto) 0.6 H Neut % (Auto) 56.8 Lymph % (Auto) 25.8 Reynolds % (Auto) 10.7 H Eos % (Auto) 5.5 H Baso % (Auto) 0.6 Lymph # (Auto) 1.32 Reynolds # (Auto) 0.6 Eos # (Auto) 0.3 Baso # (Auto) 0.0 Abs Immat Gran (auto) 0.03 Absolute Neuts (auto) 2.9 Absolute Nucleated RBC 0.000 Nucleated RBC % 0.0 Platelet Estimate Adequate Ovalocytes 1+ Schistocytes None seen PT 15.8 H INR 1.2 APTT 34.7 Puncture Site Right radial ABG pH 7.451 H ABG pCO2 27.2 L ABG pO2 80.2 ABG PO2/FiO2 Ratio 2.86 ABG HCO3 18.5 L ABG O2 Saturation 96.5 ABG O2 Content 14.5 L ABG Base Excess -4.3 A-a Gradient 87.3 Oxyhemoglobin 94.7 Total Hemoglobin 10.8 L O2 Delivery Device Nasal cannula O2 Liters/Min 2.0 FiO2 28 Sodium Cancelled 135 L Potassium Cancelled 4.6 Chloride Cancelled 108 H Carbon Dioxide Cancelled 19 L Anion Gap Cancelled 8 BUN Cancelled 52 H Creatinine Cancelled 2.40 H Estim Creat Clear Calc Cancelled 16 Estimated GFR Cancelled 24 L Glucose Cancelled 102 Lactic Acid 1.1 Calcium Cancelled 8.8 Total Bilirubin Cancelled 0.7 AST Cancelled 34 ALT Cancelled 13 Alkaline Phosphatase Cancelled 114 Troponin I < 0.012 NT-Pro-B Natriuret Pep 759 H Total Protein Cancelled 9.0 H Albumin Cancelled 3.6 Procalcitonin 0.5 Influenza A (RT-PCR) Influenza B (RT-PCR) RSV (RT-PCR) SARS-CoV-2 RNA (RT-PCR) 09/02/24 09/02/24 03:13 06:17 WBC RBC Hgb Hct MCV MCH MCHC RDW Plt Count MPV Immature Gran % (Auto) Neut % (Auto) Lymph % (Auto) Reynolds % (Auto) Eos % (Auto) Baso % (Auto) Lymph # (Auto) Reynolds # (Auto) Eos # (Auto) Baso # (Auto) Abs Immat Gran (auto) Absolute Neuts (auto) Absolute Nucleated RBC Nucleated RBC % Platelet Estimate Ovalocytes Schistocytes PT INR APTT Puncture Site ABG pH ABG pCO2 ABG pO2 ABG PO2/FiO2 Ratio ABG HCO3 ABG O2 Saturation ABG O2 Content ABG Base Excess A-a Gradient Oxyhemoglobin Total Hemoglobin O2 Delivery Device O2 Liters/Min FiO2 Sodium Potassium Chloride Carbon Dioxide Anion Gap BUN Creatinine Estim Creat Clear Calc Estimated GFR Glucose Lactic Acid Calcium Total Bilirubin AST ALT Alkaline Phosphatase Troponin I < 0.012 NT-Pro-B Natriuret Pep Total Protein Albumin Procalcitonin Influenza A (RT-PCR) Negative Influenza B (RT-PCR) Negative RSV (RT-PCR) Negative SARS-CoV-2 RNA (RT-PCR) Negative
[2024-09-02 15:02] LABS: Iron 42 ug/dL (37-170)
[2024-09-02 15:11] LABS: Percent Iron Saturation 25 % (20-50)
[2024-09-02 15:18] LABS: Immature Reticulocyte Fraction 24.8 % (3.0-15.9); Reticulocyte Hemoglobin Conten 33.8 pg (28.2-36.6); Reticulocyte Percent 1.21 % (0.7-4.3); Reticulocytes Absolute 0.03 10^6/uL (0.02-0.10)
[2024-09-02 16:10] LABS: Folic Acid 11.4 ng/mL (2.76->20)
[2024-09-03] VITALS (27 sets, daily range): BP systolic 142–211; BP diastolic 78–92; PULSE 77–94; RESP 18–20; TEMP 36.6–36.9; O2SAT 94–100
[2024-09-03] MEDS: hydrALAZINE HCL 20 MG/ML VIAL 10 MG IV PUSH ×3 (00:39→23:57)
[2024-09-03] MEDS: IPRATROPIUM 0.5 MG/ALBUTEROL SULFATE 2.5 MG AMPUL.NEB 3 ML INHALATION ×3 (01:49→20:41)
[2024-09-03] MEDS: ACETAMINOPHEN 325 MG TABLET 650 MG PO ×2 (02:37→22:36)
[2024-09-03 05:08] LABS: Hematocrit 25.4 % (37.0-47.0); Hemoglobin 8.1 g/dL (12.0-15.0); Immature Granulocyte Absolute 0.02 K/mm3 (0.00-0.031); Immature Granulocyte Percent A 0.8 % (0-0.5); Lymphocytes Absolute Auto 0.56 K/mm3 (0.9-3.2); Lymphocytes Percent Auto 21.4 % (18.3-44.2); Mean Corpuscular HGB Conc 31.9 g/dl (32-36); Mean Corpuscular Hemoglobin 33.9 pg (26-34); Mean Corpuscular Volume 106.3 fl (80-100); Monocytes Absolute Auto 0.2 K/mm3 (0.1-0.6); Monocytes Percent Auto 8.8 % (2.6-8.5); Neutrophils Absolute Auto 1.8 K/mm3 (1.3-6.7); Platelet Count Result 170 k/mm3 (150-375); Red Blood Count 2.39 M/mm3 (4.2-5.4); Red Cell Distribution Width 13.2 % (11.5-14.5); White Blood Count 2.6 K/mm3 (4.5-10.0)
[2024-09-03] MEDS: methylPREDNISolone SOD SUCC 125 MG VIAL 60 MG IV PUSH ×3 (05:26→22:36)
[2024-09-03 05:28] LABS: Anisocytosis 1+; Burr Cells 1+; Ovalocytes 1+; Platelet Estimate Adequate (Adequate); Schistocytes None Seen
[2024-09-03 05:46] LABS: Alanine Aminotransferase 14 U/L (6-35); Albumin Level 2.7 g/dL (3.5-5.1); Alkaline Phosphatase 101 U/L (38-126); Anion Gap 7 mmol/L (4-12); Aspartate Amino Transferase 28 U/L (14-36); Bilirubin,Total 0.4 mg/dL (0.2-1.3); Blood Urea Nitrogen 41 mg/dL (7-17); Calcium 7.6 mg/dL (8.4-10.2); Carbon Dioxide 16 mmol/L (22-30); Chloride 113 mmol/L (98-107); Estimated CRCL calculation 24 ml/min; Estimated Glomerular Filt Rate 39; Glucose 215 mg/dL (65-110); Magnesium 1.7 mg/dL (1.6-2.3); Potassium 3.9 mmol/L (3.4-5.0); Sodium 136 mmol/L (137-145)
[2024-09-03] MEDS: AZITHROMYCIN 500 MG/NS 250 ML 500 MG/250 ML BAG 250 MG IVPB (06:39)
[2024-09-03] MEDS: FLUoxetine HCL 20 MG CAPSULE 40 MG PO (08:51)
[2024-09-03] MEDS: CLOPIDOGREL BISULFATE 75 MG TABLET PO (08:51)
[2024-09-03] MEDS: ATORVASTATIN 20 MG TABLET PO (08:51)
[2024-09-03] MEDS: MONTELUKAST SODIUM 10 MG TABLET PO (08:51)
[2024-09-03] MEDS: HEPARIN SODIUM 5,000 UNITS/ML VIAL 5000 UNITS SUB-Q ×2 (08:52→22:38)
[2024-09-03] MEDS: FLUTICASONE PROPIONATE 0.05% NA SPR 16 GM BTL (*BKC) 1 SPRAY NASAL ×2 (08:52→16:14)
--- NOTE | 2024-09-03 11:45 | ECG_ITS ---
Test Date: 2024-09-03 11:56:53 Measurements Intervals [place] Rate: 87 P: 51 NH: 170 QRS: -28 QRSD: 89 T: 42 QT: 364 QTc: 439 Interpretive Statements SINUS RHYTHM DELAYED PRECORDIAL R/S TRANSITION BASELINE WANDER- II, V1, V3-V6 BORDERLINE ECG Compared to ECG 09/02/2024 01:12:32 HEART RATE HAS DECREASED Electronically Signed On 09-03-2024 13:58:33 CUSTOMER CARE ASSISTANT by Guido Campos D.O.
--- NOTE | 2024-09-03 11:45 | PM.IMPN ---
Progress Note: A&P Assessment and Plan (1) Community acquired pneumonia: Qualifiers: Laterality: unspecified laterality Qualified Code(s): J18.9 - Pneumonia, unspecified organism Code(s): J18.9 - Pneumonia, unspecified organism Status: Acute (2) Acute hypoxic respiratory failure: Code(s): J96.01 - Acute respiratory failure with hypoxia Status: Acute (3) Acute exacerbation of chronic obstructive pulmonary disease: Code(s): J44.1 - Chronic obstructive pulmonary disease with (acute) exacerbation Status: Acute (4) Severe protein-calorie malnutrition: Code(s): E43 - Unspecified severe protein-calorie malnutrition Status: Acute (5) Acute kidney injury superimposed on stage 3b chronic kidney disease: Code(s): N17.9 - Acute kidney failure, unspecified; N18.32 - Chronic kidney disease, stage 3b Status: Acute Plan This is a 69-year-old female who presents shortness of breath and generalized weakness. She also reports some cough worsening over the past several days associated with increasing shortness of breath in the ED she was noted to be hypoxic requiring oxygen supplementation. Laboratory studies showed WBC of 5.1 hemoglobin of 9.6 creatinine 2.4 baseline of 1.4. P 759 troponin was less than 0.012. Influenza RSV and COVID swab was negative. ABG 7.45/27/80/18. Chest x-ray showed diffuse bilateral pulmonary infiltrates suggesting pneumonia and/or pulmonary edema. History of COPD Patient was started on scheduled nebulizer and Solu-Medrol in the ED. suspected COPD exacerbation with pneumonia. On ceftriaxone azithromycin MYKE on CKD stage 3 IV hydration will stop IV fluid today. Check BNP Chronic anemia DVT prophylaxis heparin subQ Code status do not resuscitate Patient has severe protein calorie malnutrition.Patient has had 11 kg weight loss since November. Dietitian for nutritional supplement the recommendations. Subjective Date/time seen: 09/03/24 11:45 Interval history: Reports some chest discomfort. Also has some shortness of breath with exertion. Denies any nausea vomiting. Review of Systems Review of Systems: All systems reviewed & are unremarkable except as noted in HPI and below Exam Narrative: GENERAL: Well-appearing, thin built, and in no acute distress. HEAD: Normocephalic, atraumatic. EYES: PERRLA and EOMI. ENT: Nares clear, no rhinorrhea or epistaxis. Mucous membranes moist. NECK: Supple. CHEST: Coarse breath sounds occasional wheezes. No respiratory distress. HEART: Regular rate and rhythm. No murmur heard. Normal peripheral pulses. ABDOMEN: Soft, nontender, nondistended, normal active bowel sounds. EXTREMITIES: Normal range of motion. No edema. SKIN: Warm, dry, no rash. NEURO: No focal deficits. Alert and oriented x3. PSYCH: Normal mood and affect. Objective Data Vital Signs Vital Signs: Vital Signs - 24 hr 09/02/24 13:14 09/02/24 13:25 09/02/24 15:42 Temperature 97.8 F Pulse Rate 78 83 87 Respiratory Rate 20 20 20 Blood Pressure 138/76 Pulse Oximetry 98 Oxygen Delivery 09/02/24 12:00 09/02/24 14:00 09/02/24 16:00 Temperature Pulse Rate 91 79 84 Respiratory Rate Blood Pressure Pulse Oximetry Oxygen Delivery 09/02/24 18:00 09/02/24 19:58 09/02/24 20:43 Temperature 97.5 F L Pulse Rate 74 79 94 Respiratory Rate 20 20 Blood Pressure 140/53 L Pulse Oximetry 100 Oxygen Delivery 09/02/24 20:45 09/02/24 20:50 09/02/24 20:00 Temperature Pulse Rate 98 90 Respiratory Rate 20 Blood Pressure Pulse Oximetry 94 Oxygen Delivery Room Air Room Air 09/02/24 20:00 09/02/24 22:00 09/02/24 23:01 Temperature 97.7 F Pulse Rate 81 85 89 Respiratory Rate 20 Blood Pressure 190/90 H Pulse Oximetry 100 Oxygen Delivery 09/02/24 23:54 09/03/24 00:00 09/03/24 00:25 Temperature Pulse Rate 79 Respiratory Rate Blood Pressure 211/92 H Pulse Oximetry Oxygen Delivery Room Air 09/03/24 00:25 09/03/24 01:41 09/03/24 01:49 Temperature 97.9 F Pulse Rate 84 83 Respiratory Rate 20 20 Blood Pressure 202/90 H 169/92 H Pulse Oximetry 96 Oxygen Delivery 09/03/24 01:58 09/03/24 02:00 09/03/24 03:41 Temperature Pulse Rate 90 91 Respiratory Rate 20 Blood Pressure Pulse Oximetry Oxygen Delivery Room Air 09/03/24 03:45 09/03/24 04:00 09/03/24 06:00 Temperature 97.8 F Pulse Rate 94 83 77 Respiratory Rate 20 Blood Pressure 145/78 H Pulse Oximetry 98 Oxygen Delivery 09/03/24 08:15 09/03/24 08:15 09/03/24 09:35 Temperature 97.9 F Pulse Rate 94 84 Respiratory Rate 20 20 Blood Pressure 155/86 H Pulse Oximetry 100 99 Oxygen Delivery Room Air 09/03/24 08:35 09/03/24 08:00 09/03/24 08:00 Temperature Pulse Rate 87 87 87 Respiratory Rate 20 20 Blood Pressure Pulse Oximetry 99 Oxygen Delivery Room Air 09/03/24 11:35 Temperature 97.8 F Pulse Rate 91 Respiratory Rate 20 Blood Pressure 142/82 H Pulse Oximetry 100 Oxygen Delivery Intake/Output Intake/Output: Intake & Output 08/31/24 09/01/24 09/02/24 09/03/24 23:59 23:59 23:59 23:59 Intake Total 2306 1230 Output Total 400 600 Balance 1906 630 Meds/Results Medications: Active Medications Generic Name Dose Route Start Last Admin Trade Name Freq PRN Reason Stop Dose Admin Acetaminophen 650 mg 09/02/24 03:37 09/03/24 02:37 Acetaminophen 325 Mg Tablet PO 650 mg Q4H PRN Administration Mild Pain (1-3) or Fever Albuterol/Ipratropium 3 ml 09/02/24 08:00 09/03/24 08:33 Ipratropium 0.5 Mg/Albuterol Sulfate 2.5 Mg Ampul.Neb 3 Ml INHALATION 3 ml Q6HRT DORCAS Administration Atorvastatin Calcium 20 mg 09/02/24 09:00 09/03/24 08:51 Atorvastatin 20 Mg Tablet PO 20 mg DAILY DORCAS Administration Clopidogrel Bisulfate 75 mg 09/02/24 09:00 09/03/24 08:51 Clopidogrel Bisulfate 75 Mg Tablet PO 75 mg DAILY DORCAS Administration Fluoxetine HCl 40 mg 09/02/24 09:00 09/03/24 08:51 Fluoxetine Hcl 20 Mg Capsule PO 40 mg DAILY DORCAS Administration Fluticasone Propionate 1 spray 09/02/24 09:00 09/03/24 08:52 Fluticasone Propionate 0.05% Na Spr 16 Gm Btl (*Bkc) NASAL 1 spray BID DORCAS Administration Heparin Sodium (Porcine) 5,000 units 09/02/24 09:00 09/03/24 08:52 Heparin Sodium 5,000 Units/Ml Vial SUB-Q 5,000 units Q12HR DORCAS Administration Hydralazine HCl 10 mg 09/03/24 00:25 09/03/24 00:39 Hydralazine Hcl 20 Mg/Ml Vial IV PUSH 10 mg Q4H PRN Administration Blood Pressure - High Ceftriaxone Sodium 1 gm in 50 mls @ 100 mls/hr 09/03/24 05:00 09/03/24 06:42 Rocephin 1 Gm/Ns 50 Ml IVPB Infused Q24H DORCAS Infusion Azithromycin 500 mg in 250 mls @ 250 mls/hr 09/03/24 06:00 09/03/24 06:39 Zithromax IVPB 250 mls/hr Q24H DORCAS Administration Sodium Chloride 1,000 mls @ 50 mls/hr 09/02/24 03:40 09/02/24 19:48 Normal Saline Iv IV CONT 50 mls/hr .Q20H DORCAS Infusion Methylprednisolone Sodium Succinate 60 mg 09/02/24 08:00 09/03/24 05:26 Methylprednisolone Sod Succ 125 Mg Vial IV PUSH 60 mg Q8HR DORCAS Administration Montelukast Sodium 10 mg 09/02/24 09:00 09/03/24 08:51 Montelukast Sodium 10 Mg Tablet PO 10 mg DAILY DORCAS Administration Radiology Results: ITS Impressions Chest X-Ray 09/02/24 06:36 IMPRESSION: Diffuse bilateral pulmonary infiltrates suggesting pneumonia and/or pulmonary edema Labs Labs: Laboratory Results - last 24 hr 09/02/24 09/02/24 09/03/24 02:06 02:55 04:20 WBC 2.6 L RBC 2.39 L Hgb 8.1 L Hct 25.4 L MCV 106.3 H MCH 33.9 MCHC 31.9 L RDW 13.2 Plt Count 170 MPV 10.0 Immature Gran % (Auto) 0.8 H Neut % (Auto) 69.0 Lymph % (Auto) 21.4 [place] % (Auto) 8.8 H Eos % (Auto) 0.0 Baso % (Auto) 0.0 L Lymph # (Auto) 0.56 L [place] # (Auto) 0.2 Eos # (Auto) 0.0 Baso # (Auto) 0.0 Abs Immat Gran (auto) 0.02 Absolute Neuts (auto) 1.8 Absolute Nucleated RBC 0.000 Nucleated RBC % 0.0 Platelet Estimate Adequate Anisocytosis 1+ Ovalocytes 1+ [place] Cells 1+ Schistocytes None seen Absolute Retic 0.03 Percent Retic 1.21 Immature Retic Fraction 24.8 H Retic Hgb Content 33.8 Sodium 136 L Potassium 3.9 Chloride 113 H Carbon Dioxide 16 L Anion Gap 7 BUN 41 H D Creatinine 1.60 H Estim Creat Clear Calc 24 Estimated GFR 39 L Glucose 215 H Calcium 7.6 L Magnesium 1.7 Iron 42 TIBC 170 L % Saturation 25 Ferritin 832.00 H Total Bilirubin 0.4 AST 28 ALT 14 Alkaline Phosphatase 101 Total Protein 8.0 Albumin 2.7 L Vitamin B12 419.0 Folate 11.4
[2024-09-03] MEDS: guaiFENesin 12 HR 600 MG TABCR PO ×2 (13:00→22:36)
[2024-09-03 13:11] LABS: NT Pro B Type Natriuretic Pept 5950 pg/mL (19.9-100)
[2024-09-03 13:13] LABS: Troponin I < 0.012 ng/mL (0.000-0.034)
--- NOTE | 2024-09-03 15:42 | PCRCNOTE ---
Window of time for administration has passed. See next scheduled administration.
[2024-09-03] MEDS: FAMOTIDINE 20 MG TABLET PO (22:36)
[2024-09-03] MEDS: CALCIUM CARBONATE (TUMS) 500 MG (200 MG ELEMENTAL) PO (23:56)
[2024-09-04] VITALS (26 sets, daily range): BP systolic 146–173; BP diastolic 77–92; PULSE 74–98; RESP 18–20; TEMP 36.3–37.1; O2SAT 96–99
[2024-09-04] MEDS: IPRATROPIUM 0.5 MG/ALBUTEROL SULFATE 2.5 MG AMPUL.NEB 3 ML INHALATION ×4 (03:29→21:52)
[2024-09-04 04:57] LABS: Hematocrit 28.6 % (37.0-47.0); Hemoglobin 9.1 g/dL (12.0-15.0); Immature Granulocyte Absolute 0.04 K/mm3 (0.00-0.031); Immature Granulocyte Percent A 0.9 % (0-0.5); Lymphocytes Absolute Auto 0.55 K/mm3 (0.9-3.2); Lymphocytes Percent Auto 12.3 % (18.3-44.2); Mean Corpuscular HGB Conc 31.8 g/dl (32-36); Mean Corpuscular Hemoglobin 34.3 pg (26-34); Mean Corpuscular Volume 107.9 fl (80-100); Monocytes Absolute Auto 0.2 K/mm3 (0.1-0.6); Monocytes Percent Auto 5.4 % (2.6-8.5); Neutrophils Absolute Auto 3.6 K/mm3 (1.3-6.7); Neutrophils Percent Auto 81.4 % (45.5-73.1); Platelet Count Result 183 k/mm3 (150-375); Red Blood Count 2.65 M/mm3 (4.2-5.4); Red Cell Distribution Width 13.7 % (11.5-14.5); White Blood Count 4.5 K/mm3 (4.5-10.0)
[2024-09-04 05:13] LABS: Alanine Aminotransferase 16 U/L (6-35); Alkaline Phosphatase 87 U/L (38-126); Anion Gap 6 mmol/L (4-12); Aspartate Amino Transferase 30 U/L (14-36); Bilirubin,Total 0.4 mg/dL (0.2-1.3); Blood Urea Nitrogen 40 mg/dL (7-17); Calcium 7.8 mg/dL (8.4-10.2); Carbon Dioxide 18 mmol/L (22-30); Chloride 111 mmol/L (98-107); Estimated CRCL calculation 26 ml/min; Estimated Glomerular Filt Rate 42; Glucose 155 mg/dL (65-110); Magnesium 1.7 mg/dL (1.6-2.3); Sodium 135 mmol/L (137-145)
[2024-09-04] MEDS: methylPREDNISolone SOD SUCC 125 MG VIAL 60 MG IV PUSH ×3 (05:47→21:03)
[2024-09-04] MEDS: AZITHROMYCIN 500 MG/NS 250 ML 500 MG/250 ML BAG 250 MG IVPB (05:47)
[2024-09-04] MEDS: FAMOTIDINE 20 MG TABLET PO ×2 (08:59→21:03)
[2024-09-04] MEDS: CLOPIDOGREL BISULFATE 75 MG TABLET PO (08:59)
[2024-09-04] MEDS: MONTELUKAST SODIUM 10 MG TABLET PO (08:59)
[2024-09-04] MEDS: ATORVASTATIN 20 MG TABLET PO (08:59)
[2024-09-04] MEDS: guaiFENesin 12 HR 600 MG TABCR PO (08:59)
[2024-09-04] MEDS: FLUoxetine HCL 20 MG CAPSULE 40 MG PO (09:00)
[2024-09-04] MEDS: HEPARIN SODIUM 5,000 UNITS/ML VIAL 5000 UNITS SUB-Q ×2 (09:00→21:04)
[2024-09-04] MEDS: FLUTICASONE PROPIONATE 0.05% NA SPR 16 GM BTL (*BKC) 1 SPRAY NASAL ×2 (09:00→17:10)
--- NOTE | 2024-09-04 13:11 | PM.IMPN ---
Progress Note: A&P Assessment and Plan (1) Community acquired pneumonia: Qualifiers: Laterality: unspecified laterality Qualified Code(s): J18.9 - Pneumonia, unspecified organism Code(s): J18.9 - Pneumonia, unspecified organism Status: Acute (2) Acute hypoxic respiratory failure: Code(s): J96.01 - Acute respiratory failure with hypoxia Status: Acute (3) Acute exacerbation of chronic obstructive pulmonary disease: Code(s): J44.1 - Chronic obstructive pulmonary disease with (acute) exacerbation Status: Acute (4) Severe protein-calorie malnutrition: Code(s): E43 - Unspecified severe protein-calorie malnutrition Status: Acute (5) Acute kidney injury superimposed on stage 3b chronic kidney disease: Code(s): N17.9 - Acute kidney failure, unspecified; N18.32 - Chronic kidney disease, stage 3b Status: Acute Plan This is a 69-year-old female who presents shortness of breath and generalized weakness. She also reports some cough worsening over the past several days associated with increasing shortness of breath in the ED she was noted to be hypoxic requiring oxygen supplementation. Laboratory studies showed WBC of 5.1 hemoglobin of 9.6 creatinine 2.4 baseline of 1.4. P 759 troponin was less than 0.012. Influenza RSV and COVID swab was negative. ABG 7.45/27/80/18. Chest x-ray showed diffuse bilateral pulmonary infiltrates suggesting pneumonia and/or pulmonary edema. History of COPD and history of lung fibrosis. Was started on ofev which she did not tolerate and was planned to be switch to another agent which she has not started yet. Follows with Dr. Chin [facility] Pulmonary. Patient was started on scheduled nebulizer and Solu-Medrol in the ED. suspected COPD exacerbation with pneumonia. On ceftriaxone azithromycin possible interstitial lung disease flare. Continue on steroid. Will check echocardiogram. MYKE on CKD stage 3 IV hydration will stop IV fluid today. BNP was 5950 Chronic anemia DVT prophylaxis heparin subQ Code status do not resuscitate Patient has severe protein calorie malnutrition.Patient has had 11 kg weight loss since November. Dietitian for nutritional supplement the recommendations. Subjective Date/time seen: 09/04/24 13:11 Interval history: No overnight events. Still feels short of breath with exertion. Denies any leg swelling. Review of Systems Review of Systems: All systems reviewed & are unremarkable except as noted in HPI and below Exam Narrative: GENERAL: Well-appearing, thin built, and in no acute distress. HEAD: Normocephalic, atraumatic. EYES: PERRLA and EOMI. ENT: Nares clear, no rhinorrhea or epistaxis. Mucous membranes moist. NECK: Supple. CHEST: Coarse breath sounds occasional wheezes. No respiratory distress. HEART: Regular rate and rhythm. No murmur heard. Normal peripheral pulses. ABDOMEN: Soft, nontender, nondistended, normal active bowel sounds. EXTREMITIES: Normal range of motion. No edema. SKIN: Warm, dry, no rash. NEURO: No focal deficits. Alert and oriented x3. PSYCH: Normal mood and affect. Objective Data Vital Signs Vital Signs: Vital Signs - 24 hr 09/03/24 13:59 09/03/24 16:43 09/03/24 16:00 Temperature 98.4 F Pulse Rate 91 87 87 Respiratory Rate 20 20 Blood Pressure 191/81 H Pulse Oximetry 100 94 Oxygen Delivery Nasal Cannula Oxygen Flow Rate 2 Fraction of Inspired Oxygen 09/03/24 16:00 09/03/24 18:00 09/03/24 19:54 Temperature 97.8 F Pulse Rate 87 87 82 Respiratory Rate 20 Blood Pressure 156/83 H Pulse Oximetry 100 Oxygen Delivery Oxygen Flow Rate Fraction of Inspired Oxygen 09/03/24 20:00 09/03/24 23:55 09/04/24 01:05 Temperature 97.9 F Pulse Rate 85 87 Respiratory Rate 20 Blood Pressure 186/91 H 148/86 H Pulse Oximetry 100 96 97 Oxygen Delivery Room Air Oxygen Flow Rate Fraction of Inspired Oxygen 09/04/24 00:00 09/03/24 20:00 09/03/24 22:00 Temperature Pulse Rate 88 87 Respiratory Rate Blood Pressure Pulse Oximetry Oxygen Delivery Room Air Oxygen Flow Rate Fraction of Inspired Oxygen 09/04/24 00:00 09/04/24 02:00 09/03/24 20:43 Temperature Pulse Rate 82 74 87 Respiratory Rate 18 Blood Pressure Pulse Oximetry Oxygen Delivery Oxygen Flow Rate Fraction of Inspired Oxygen 09/03/24 20:42 09/03/24 20:53 09/04/24 03:30 Temperature Pulse Rate 89 82 Respiratory Rate 18 18 Blood Pressure Pulse Oximetry 99 Oxygen Delivery Room Air Oxygen Flow Rate Fraction of Inspired Oxygen 09/04/24 03:52 09/04/24 03:55 09/04/24 04:00 Temperature 97.6 F Pulse Rate 92 94 Respiratory Rate 20 Blood Pressure 146/77 H Pulse Oximetry 99 Oxygen Delivery Room Air Oxygen Flow Rate Fraction of Inspired Oxygen 09/04/24 03:40 09/04/24 05:59 09/04/24 08:14 Temperature Pulse Rate 85 85 Respiratory Rate 18 Blood Pressure Pulse Oximetry 98 Oxygen Delivery Room Air Oxygen Flow Rate Fraction of Inspired Oxygen 21 09/04/24 08:14 09/04/24 08:19 09/04/24 08:00 Temperature 97.9 F Pulse Rate 88 85 93 Respiratory Rate 20 20 Blood Pressure 150/85 H Pulse Oximetry 98 Oxygen Delivery Oxygen Flow Rate Fraction of Inspired Oxygen 09/04/24 12:00 09/04/24 08:00 09/04/24 08:00 Temperature 97.4 F L Pulse Rate 98 98 98 Respiratory Rate 18 18 Blood Pressure 148/82 H Pulse Oximetry 99 99 Oxygen Delivery Room Air Oxygen Flow Rate Fraction of Inspired Oxygen 21 Intake/Output Intake/Output: Intake & Output 09/01/24 09/02/24 09/03/24 09/04/24 23:59 23:59 23:59 23:59 Intake Total 2306 2208 1160 Output Total 400 1200 600 Balance 1906 1008 560 Meds/Results Medications: Active Medications Generic Name Dose Route Start Last Admin Trade Name Freq PRN Reason Stop Dose Admin Acetaminophen 650 mg 09/02/24 03:37 09/03/24 22:36 Acetaminophen 325 Mg Tablet PO 650 mg Q4H PRN Administration Mild Pain (1-3) or Fever Albuterol/Ipratropium 3 ml 09/02/24 08:00 09/04/24 08:14 Ipratropium 0.5 Mg/Albuterol Sulfate 2.5 Mg Ampul.Neb 3 Ml INHALATION 3 ml Q6HRT DORCAS Administration Atorvastatin Calcium 20 mg 09/02/24 09:00 09/04/24 08:59 Atorvastatin 20 Mg Tablet PO 20 mg DAILY DORCAS Administration Calcium Carbonate 200 mg 09/03/24 20:18 09/03/24 23:56 Calcium Carbonate (Tums) 500 Mg (200 Mg Elemental) PO 200 mg Q6H PRN Administration Indigestion Clopidogrel Bisulfate 75 mg 09/02/24 09:00 09/04/24 08:59 Clopidogrel Bisulfate 75 Mg Tablet PO 75 mg DAILY DORCAS Administration Famotidine 20 mg 09/03/24 21:00 09/04/24 08:59 Famotidine 20 Mg Tablet PO 20 mg Q12HR DORCAS Administration Fluoxetine HCl 40 mg 09/02/24 09:00 09/04/24 09:00 Fluoxetine Hcl 20 Mg Capsule PO 40 mg DAILY DORCAS Administration Fluticasone Propionate 1 spray 09/02/24 09:00 09/04/24 09:00 Fluticasone Propionate 0.05% Na Spr 16 Gm Btl (*Bkc) NASAL 1 spray BID DORCAS Administration Guaifenesin 600 mg 09/03/24 11:50 09/04/24 08:59 Guaifenesin 12 Hr 600 Mg Tabcr PO 600 mg Q12HR DORCAS Administration Heparin Sodium (Porcine) 5,000 units 09/02/24 09:00 09/04/24 09:00 Heparin Sodium 5,000 Units/Ml Vial SUB-Q 5,000 units Q12HR DORCAS Administration Hydralazine HCl 10 mg 09/03/24 00:25 09/03/24 23:57 Hydralazine Hcl 20 Mg/Ml Vial IV PUSH 10 mg Q4H PRN Administration Blood Pressure - High Ceftriaxone Sodium 1 gm in 50 mls @ 100 mls/hr 09/03/24 05:00 09/04/24 06:44 Rocephin 1 Gm/Ns 50 Ml IVPB Infused Q24H DORCAS Infusion Azithromycin 500 mg in 250 mls @ 250 mls/hr 09/03/24 06:00 09/04/24 05:47 Zithromax IVPB 250 mls/hr Q24H DORCAS Administration Methylprednisolone Sodium Succinate 60 mg 09/02/24 08:00 09/04/24 05:47 Methylprednisolone Sod Succ 125 Mg Vial IV PUSH 60 mg Q8HR DORCAS Administration Montelukast Sodium 10 mg 09/02/24 09:00 09/04/24 08:59 Montelukast Sodium 10 Mg Tablet PO 10 mg DAILY DORCAS Administration Radiology Results: ITS Impressions Chest X-Ray 09/03/24 13:19 IMPRESSION: Extensive chronic bilateral patchy interstitial changes suggesting extensive chronic bilateral pulmonary interstitial fibrosis. Superimposed pneumonia is not excluded. Clinical correlation is advised. Chest CT 09/04/24 13:06 IMPRESSION: 1. Chronic interstitial lung disease in a pattern of usual interstitial pneumonia (UIP). Labs Labs: Laboratory Results - last 24 hr 09/03/24 09/04/24 12:22 04:32 WBC 4.5 RBC 2.65 L Hgb 9.1 L Hct 28.6 L MCV 107.9 H MCH 34.3 H MCHC 31.8 L RDW 13.7 Plt Count 183 MPV 10.0 Immature Gran % (Auto) 0.9 H Neut % (Auto) 81.4 H Lymph % (Auto) 12.3 L [place] % (Auto) 5.4 Eos % (Auto) 0.0 Baso % (Auto) 0.0 L Lymph # (Auto) 0.55 L [place] # (Auto) 0.2 Eos # (Auto) 0.0 Baso # (Auto) 0.0 Abs Immat Gran (auto) 0.04 H Absolute Neuts (auto) 3.6 Absolute Nucleated RBC 0.000 Nucleated RBC % 0.0 Sodium 135 L Potassium 4.0 Chloride 111 H Carbon Dioxide 18 L Anion Gap 6 BUN 40 H Creatinine 1.50 H Estim Creat Clear Calc 26 Estimated GFR 42 L Glucose 155 H Calcium 7.8 L Magnesium 1.7 Total Bilirubin 0.4 AST 30 ALT 16 Alkaline Phosphatase 87 Troponin I < 0.012 NT-Pro-B Natriuret Pep 5950 H Total Protein 7.0 Albumin 3.0 L
[2024-09-04] MEDS: guaiFENesin 12 HR 600 MG TABCR 1200 MG PO (21:03)
[2024-09-05] VITALS (21 sets, daily range): BP systolic 150–186; BP diastolic 73–98; PULSE 71–107; RESP 18–24; TEMP 36.3–36.8; O2SAT 87–100
--- NOTE | 2024-09-05 | ECHO_ITS ---
Patient Info Name: Susan Ayala White Age: 69 years : 1955 Gender: Female Ht: 62 in Wt: 114 lbs BSA: 1.50 m2 HR: 81 bpm BP: 150 / 73 mmHg Technical Quality: Fair Exam Date: 09/05/2024 9:40 AM Exam Location: Echo Lab Patient Status: Outpatient Admit Date: 09/02/2024 Staff Ordering Physician: Mina Vila MD Homebirth Midwife: Marlon Bloom RDCS Attending Provider: Lauryn Reyna DO Exam Type: CA echo doppler color flow Study Info Indications - SOB Complete two-dimensional, color flow and Doppler transthoracic echocardiogram is performed. Summary 1. Complete two-dimensional, color flow and Doppler transthoracic echocardiogram is performed. 2. The left ventricle is normal in size and systolic function. There is mild concentric left ventricular hypertrophy. 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 The left ventricular ejection fraction is visually estimated to be 65-70%. 3. The right ventricle is normal in size and systolic function. Left Ventricle The left ventricle is normal in size and systolic function. There is mild concentric left ventricular hypertrophy. 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 The left ventricular ejection fraction is visually estimated to be 65-70%. Right Ventricle The right ventricle is normal in size and systolic function. Left Atria The left atrium is mildly dilated. Right Atria The right atrium is normal in size. Atrial Septum The atrial septum visually appears intact. Aortic Valve The aortic valve is trileaflet and opens well. There is no aortic regurgitation. Pulmonic Valve The pulmonic valve is not well visualized. There is no color Doppler evidence of pulmonic valve regurgitation. Mitral Valve The mitral valve is normal. There is no mitral regurgitation. Tricuspid Valve The tricuspid valve is grossly normal. There is trace tricuspid regurgitation. Pericardium/Pleural Pericardium is normal in appearance with no evidence for significant pericardial effusion. Inferior Vena Cava Normal inferior vena cava with >50% collapse upon inspiration consistent with normal right atrial pressure, 3 mmHg. Aorta The aortic root at the level of the sinus of Valsalva measures 2.7 cm in diameter. Left Ventricular Outflow Tract Name Value Normal LVOT 2D LVOT Diameter 1.9 cm LVOT Doppler LVOT Peak Gradient 4 mmHg LVOT Mean Gradient 2 mmHg LVOT VTI 26 cm LVOT VTI/AV VTI Ratio 0.9 LVOT Stroke Volume 73 ml LVOT CO 3.6 l/min LVOT CI 2.4 l/min/m2 Pulmonic Valve Name Value Normal RVOT Doppler RVOT Peak Gradient 4 mmHg PV Doppler PV Peak Gradient 3 mmHg Mitral Valve Name Value Normal MV Doppler MV Decel Mcpherson 1,047 cm/s2 MV PHT 19 ms MV Area (PHT) 11.4 cm2 4.0-5.0 MV Diastolic Function MV E Peak Velocity 70 cm/s MV A Peak Velocity 112 cm/s MV E/A 0.6 MV Decel Time 67 ms MV Annular TDI MV E/e' (Septal) 16.6 <=8.0 MV E/e' (Lateral) 13.5 <=8.0 MV E/e' (Average) 15.0 Tricuspid Valve Name Value Normal TV Regurgitation Doppler TR Peak Velocity 383 cm/s TR Peak Gradient 59 mmHg Estimated PAP/RSVP RA Pressure 3 mmHg <=5 PA Systolic Pressure 62 mmHg <36 RV Systolic Pressure 62 mmHg <36 Aorta Name Value Normal Ascending Aorta Ao Root Diameter (MM) 2.9 cm Ao Root Diam Index (MM) 1.9 cm/m2 Aortic Valve Name Value Normal AV Doppler AV Peak Velocity 170 cm/s AV Peak Gradient 12 mmHg AV Mean Gradient 5 mmHg AV VTI 30 cm AV Area (Cont Eq VTI) 2.4 cm2 >=3.0 AV Area (Cont Eq Sascha) 1.6 cm2 AV Regurgitation 2D LVOT Area 2.8 cm2 Ventricles Name Value Normal LV Dimensions 2D/MM IVS Diastolic Thickness (2D) 1.0 cm 0.6-1.0 LVID Diastole (2D) 3.6 cm 3.8-5.2 LVIW Diastolic Thickness (2D) 1.6 cm 0.6-0.9 LVID Systole (2D) 2.3 cm 2.2-3.5 LVOT Diameter 1.9 cm LV Mass (2D Cubed) 158.36 g 67.00-162.00 LV Mass Index (2D Cubed) 105 g/m2 43-95 Relative Wall Thickness (2D) 0.88 LV Fractional Shortening/Ejection Fraction 2D/MM LV Fractional Shortening (2D) 37 % 27-45 LV EF (2D [place]) 68 % 54-74 LV Diastolic Volume (4C MOD) 60 ml LV EF (4C MOD) 75 % LV Diastolic Volume (2C MOD) 47 ml LV EF (2C MOD) 71 % LV Diastolic Volume (BP MOD) 55 ml 46-106 LV Diastolic Volume Index (BP MOD) 36 ml/m2 29-61 LV Systolic Volume (BP MOD) 14 ml 14-42 LV Systolic Volume Index (BP MOD) 9 ml/m2 8-24 LV EF (BP MOD) 74 % 54-74 LV Diastolic Length (4C) 6.9 cm LV Systolic Length (4C) 5.8 cm LV Stroke Volume (4C MOD) 45 ml Atria Name Value Normal LA Dimensions LA Dimension (MM) 3.7 cm 2.7-3.8 LA Volume (4C A-L) 55 ml LA Volume (BP A-L) 56 ml RA Dimensions RA Area (4C) 8.9 cm2 <=18.0 Report Signatures
[2024-09-05] MEDS: AZITHROMYCIN 500 MG/NS 250 ML 500 MG/250 ML BAG 250 MG IVPB (05:00)
[2024-09-05 05:19] LABS: Hematocrit 24.4 % (37.0-47.0); Hemoglobin 8.1 g/dL (12.0-15.0); Immature Granulocyte Absolute 0.05 K/mm3 (0.00-0.031); Immature Granulocyte Percent A 1.1 % (0-0.5); Lymphocytes Percent Auto 13.5 % (18.3-44.2); Mean Corpuscular HGB Conc 33.2 g/dl (32-36); Mean Corpuscular Hemoglobin 34.6 pg (26-34); Mean Corpuscular Volume 104.3 fl (80-100); Mean Platelet Volume 10.2 fl (7.4-10.4); Monocytes Absolute Auto 0.5 K/mm3 (0.1-0.6); Monocytes Percent Auto 11.2 % (2.6-8.5); Neutrophils Absolute Auto 3.3 K/mm3 (1.3-6.7); Neutrophils Percent Auto 74.2 % (45.5-73.1); Platelet Count Result 174 k/mm3 (150-375); Red Blood Count 2.34 M/mm3 (4.2-5.4); Red Cell Distribution Width 13.9 % (11.5-14.5); White Blood Count 4.5 K/mm3 (4.5-10.0)
[2024-09-05 05:32] LABS: Alanine Aminotransferase 24 U/L (6-35); Albumin Level 2.6 g/dL (3.5-5.1); Alkaline Phosphatase 90 U/L (38-126); Anion Gap 4 mmol/L (4-12); Aspartate Amino Transferase 38 U/L (14-36); Bilirubin,Total 0.3 mg/dL (0.2-1.3); Blood Urea Nitrogen 46 mg/dL (7-17); Calcium 7.7 mg/dL (8.4-10.2); Carbon Dioxide 23 mmol/L (22-30); Chloride 109 mmol/L (98-107); Estimated CRCL calculation 29 ml/min; Estimated Glomerular Filt Rate 49; Glucose 167 mg/dL (65-110); Magnesium 1.6 mg/dL (1.6-2.3); Potassium 4.1 mmol/L (3.4-5.0); Sodium 136 mmol/L (137-145)
[2024-09-05] MEDS: methylPREDNISolone SOD SUCC 125 MG VIAL 60 MG IV PUSH ×2 (05:40→13:55)
[2024-09-05] MEDS: IPRATROPIUM 0.5 MG/ALBUTEROL SULFATE 2.5 MG AMPUL.NEB 3 ML INHALATION ×3 (08:18→21:07)
[2024-09-05] MEDS: MONTELUKAST SODIUM 10 MG TABLET PO (10:39)
[2024-09-05] MEDS: HEPARIN SODIUM 5,000 UNITS/ML VIAL 5000 UNITS SUB-Q ×2 (10:39→19:58)
[2024-09-05] MEDS: ATORVASTATIN 20 MG TABLET PO (10:40)
[2024-09-05] MEDS: FAMOTIDINE 20 MG TABLET PO ×2 (10:40→19:58)
[2024-09-05] MEDS: CLOPIDOGREL BISULFATE 75 MG TABLET PO (10:40)
[2024-09-05] MEDS: guaiFENesin 12 HR 600 MG TABCR 1200 MG PO ×2 (10:40→19:58)
[2024-09-05] MEDS: FLUoxetine HCL 20 MG CAPSULE 40 MG PO (10:40)
[2024-09-05] MEDS: FLUTICASONE PROPIONATE 0.05% NA SPR 16 GM BTL (*BKC) 1 SPRAY NASAL ×2 (10:40→17:37)
--- NOTE | 2024-09-05 10:58 | PCNFU ---
Nutrition Follow-Up Complete: Severe Protein Calorie Malnutrition as related to inadequate protein intake with increased protein-energy needs in setting of chronic disease as evidenced by poor po intake for > 1-2 months; significant weight loss of 39% (68 ibs) in 9 months; moderate subcutaneous fast loss (orbital fat pads) and moderate muscle wasting(temporalis). Goal:Meet estimated nutritional needs. Pt progressing towards goal, continue with same goal Pt current nutrition is Heart healthy, Ensure Enlive -strawberry TID. Nutrition recommendation: continue with current plan of care Last recorded weight is 52.7 kg. Bowel Motility: +BM / Labs Reviewed: Hgb:8.1, HCT:24.4, alb:2.6, NA:136, GFR:49, BUN:46, Cr:1.3, Glu:167 Meds Noted:solumedrol Skin: WNL Additional Notes: pt continues on a heart healthy diet, intake 50-75% most meals. Ensure Enlive in place TID, strawberry. Encourage intake, agree with diet orders. Will monitor weight, labs, skin, oral intake, meds every 5 days.
--- NOTE | 2024-09-05 15:27 | P.DS_ITS ---
DS: Admitting Diagnosis Discharge Date 09/06/2024 Admitting Diagnosis Shortness of breath DS: Discharge Diagnosis Discharge Diagnosis (1) Community acquired pneumonia: Qualifiers: Laterality: unspecified laterality Qualified Code(s): J18.9 - Pneumonia, unspecified organism Code(s): J18.9 - Pneumonia, unspecified organism Status: Acute (2) Acute hypoxic respiratory failure: Code(s): J96.01 - Acute respiratory failure with hypoxia Status: Acute (3) Acute exacerbation of chronic obstructive pulmonary disease: Code(s): J44.1 - Chronic obstructive pulmonary disease with (acute) exacerbation Status: Acute (4) Severe protein-calorie malnutrition: Code(s): E43 - Unspecified severe protein-calorie malnutrition Status: Acute (5) Acute kidney injury superimposed on stage 3b chronic kidney disease: Code(s): N17.9 - Acute kidney failure, unspecified; N18.32 - Chronic kidney disease, stage 3b Status: Acute DS: Summary Hospital Course Hospital Course: This is a 69-year-old female who presents shortness of breath and generalized weakness. She also reports some cough worsening over the past several days associated with increasing shortness of breath in the ED she was noted to be hypoxic requiring oxygen supplementation. Laboratory studies showed WBC of 5.1 hemoglobin of 9.6 creatinine 2.4 baseline of 1.4. P 759 troponin was less than 0.012. Influenza RSV and COVID swab was negative. ABG 7.45/27/80/18. Chest x-ray showed diffuse bilateral pulmonary infiltrates suggesting pneumonia and/or pulmonary edema. History of COPD and history of lung fibrosis. Was started on ofev which she did not tolerate and was planned to be switch to another agent which she has not started yet. Follows with Dr. Chin [facility] Pulmonary. Patient was started on scheduled nebulizer and Solu-Medrol in the ED. suspected COPD exacerbation with pneumonia. On ceftriaxone azithromycin possible interstitial lung disease flare. Continue on steroid. Echocardiogram was performed on 09/05/2024 with findings of apical variant hypertrophic cardiomyopathy. She will continue to follow-up with Cardiology with regard to this With regard to hypoxia CEA was still hypoxic with exertion and required oxygen supplementation at the time. She however significantly improved with steroid treatment and antibiotic. CT chest showed findings of interstitial lung disease which seemed stable. She will be discharged on steroid course along with oral antibiotics. MYKE on CKD stage 3 IV hydration and was stopped. BNP was 5950. Renal function continues to improve Chronic anemia DVT prophylaxis heparin subQ Code status do not resuscitate Patient has severe protein calorie malnutrition.Patient has had 11 kg weight loss since November. Dietitian for nutritional supplement the recommendations. Time Spent with Patient Time attestation: Total time spent providing and/or coordinating discharge services: 35 minutes Exam Narrative: GENERAL: Well-appearing, thin built, and in no acute distress. HEAD: Normocephalic, atraumatic. EYES: PERRLA and EOMI. ENT: Nares clear, no rhinorrhea or epistaxis. Mucous membranes moist. NECK: Supple. CHEST: Coarse breath sounds occasional wheezes. No respiratory distress. HEART: Regular rate and rhythm. No murmur heard. Normal peripheral pulses. ABDOMEN: Soft, nontender, nondistended, normal active bowel sounds. EXTREMITIES: Normal range of motion. No edema. SKIN: Warm, dry, no rash. NEURO: No focal deficits. Alert and oriented x3. PSYCH: Normal mood and affect. DS: Data Data Completed and Pending Labs on day of discharge: Labs from last 24 hours 09/05/24 05:04 WBC 4.5 RBC 2.34 L Hgb 8.1 L Hct 24.4 L MCV 104.3 H MCH 34.6 H MCHC 33.2 RDW 13.9 Plt Count 174 MPV 10.2 Immature Gran % (Auto) 1.1 H Neut % (Auto) 74.2 H Lymph % (Auto) 13.5 L [place] % (Auto) 11.2 H Eos % (Auto) 0.0 Baso % (Auto) 0.0 L Lymph # (Auto) 0.60 L [place] # (Auto) 0.5 Eos # (Auto) 0.0 Baso # (Auto) 0.0 Abs Immat Gran (auto) 0.05 H Absolute Neuts (auto) 3.3 Absolute Nucleated RBC 0.000 Nucleated RBC % 0.0 Sodium 136 L Potassium 4.1 Chloride 109 H Carbon Dioxide 23 Anion Gap 4 BUN 46 H Creatinine 1.30 H Estim Creat Clear Calc 29 Estimated GFR 49 L Glucose 167 H Calcium 7.7 L Magnesium 1.6 Total Bilirubin 0.3 AST 38 H ALT 24 Alkaline Phosphatase 90 Total Protein 6.0 L Albumin 2.6 L Preliminary micro results at discharge 09/02/24 02:55 Blood Culture - Preliminary Blood 09/02/24 02:06 Blood Culture - Preliminary Blood Procedures/Treatments: Exam Type: CA echo doppler color flow Study Info Indications - SOB Complete two-dimensional, color flow and Doppler transthoracic echocardiogram is performed. Summary 1. Complete two-dimensional, color flow and Doppler transthoracic echocardiogram is performed. 2. The left ventricle is normal in size and systolic function. There is mild concentric left ventricular hypertrophy. 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 The left ventricular ejection fraction is visually estimated to be 65-70%. 3. The right ventricle is normal in size and systolic function. Left Ventricle The left ventricle is normal in size and systolic function. There is mild concentric left ventricular hypertrophy. 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 The left ventricular ejection fraction is visually estimated to be 65-70%. Right Ventricle The right ventricle is normal in size and systolic function. Left Atria The left atrium is mildly dilated. Right Atria The right atrium is normal in size. Atrial Septum The atrial septum visually appears intact. Aortic Valve The aortic valve is trileaflet and opens well. There is no aortic regurgitation. Pulmonic Valve The pulmonic valve is not well visualized. There is no color Doppler evidence of pulmonic valve regurgitation. Mitral Valve The mitral valve is normal. There is no mitral regurgitation. Tricuspid Valve The tricuspid valve is grossly normal. There is trace tricuspid regurgitation. Pericardium/Pleural Pericardium is normal in appearance with no evidence for significant pericardial effusion. Inferior Vena Cava Normal inferior vena cava with >50% collapse upon inspiration consistent with normal right atrial pressure, 3 mmHg. Aorta The aortic root at the level of the sinus of Valsalva measures 2.7 cm in diameter. Imaging Radiologist's impression: ITS Impressions Chest X-Ray 09/02/24 06:36 IMPRESSION: Diffuse bilateral pulmonary infiltrates suggesting pneumonia and/or pulmonary edema Chest X-Ray 09/03/24 13:19 IMPRESSION: Extensive chronic bilateral patchy interstitial changes suggesting extensive chronic bilateral pulmonary interstitial fibrosis. Superimposed pneumonia is not excluded. Clinical correlation is advised. Chest CT 09/04/24 13:06 IMPRESSION: 1. Chronic interstitial lung disease in a pattern of usual interstitial pneumonia (UIP). Discharge Plan Discharge Attending physician on discharge: Mina Vila Discharging Clinician: Mina Vila Anticipated Discharge Date/Time: 09/06/24 12:13 Patient Disposition: Home, Self-Care Activity: as tolerated Diet: heart healthy Discharge Instructions: Oxygen supplementation 2 L with exertion was arranged at the time of discharge Follow-up with your pulmonary in 1 week. Call for appointment. Patient Instructions: Antibiotic Form, COPD (Chronic Obstructive Pulmonary Dis ease) (GEN) Stand Alone Forms: General Discharge Information Follow-up/Referrals: Quang,Reji Smith MD [Primary Care Provider] - 1 Week Discharge Medications: New prednisone 20 mg Tablet 40 mg PO DAILY@0800 Qty: 4 0RF guaifenesin [Mucus Relief ER] 600 mg Tablet Extended Release 12hr 1,200 mg PO Q12HR Qty: 30 0RF cefdinir 300 mg Capsule 300 mg PO Q12HR Qty: 2 0RF Continued fluoxetine 40 mg capsule 40 mg PO DAILY albuterol sulfate 0.63 mg/3 mL solution for nebulization 0.63 mg continuous nebulization BID atorvastatin 20 mg tablet 20 mg PO DAILY alendronate 70 mg tablet 70 mg PO WEEKLY clopidogrel 75 mg tablet 75 mg PO DAILY meclizine 25 mg tablet 25 mg PO PRN PRN (Reason: Dizziness) montelukast 10 mg tablet 10 mg PO DAILY albuterol sulfate 90 mcg/actuation HFA aerosol inhaler 2 puff INHALATION BID fluticasone propionate 50 mcg/actuation spray,suspension 1 spray INTRANASAL BID Rx Instructions: SHAKE LIQUID AND USE 1 SPRAY IN EACH NOSTRIL TWICE DAILY Date of admission: 09/05/24 17:31 Primary Care Provider: QuangReji Admitting Provider: Lauryn Reyan Attending physician on admission: Mina Vila Condition: Stable
--- NOTE | 2024-09-05 15:48 | P.PNIM_ITS ---
Progress Note: A&P Assessment and Plan (1) Community acquired pneumonia: Qualifiers: Laterality: unspecified laterality Qualified Code(s): J18.9 - Pneumonia, unspecified organism Code(s): J18.9 - Pneumonia, unspecified organism Status: Acute (2) Acute hypoxic respiratory failure: Code(s): J96.01 - Acute respiratory failure with hypoxia Status: Acute (3) Acute exacerbation of chronic obstructive pulmonary disease: Code(s): J44.1 - Chronic obstructive pulmonary disease with (acute) exacerbation Status: Acute (4) Severe protein-calorie malnutrition: Code(s): E43 - Unspecified severe protein-calorie malnutrition Status: Acute (5) Acute kidney injury superimposed on stage 3b chronic kidney disease: Code(s): N17.9 - Acute kidney failure, unspecified; N18.32 - Chronic kidney disease, stage 3b Status: Acute Plan This is a 69-year-old female who presents shortness of breath and generalized weakness. She also reports some cough worsening over the past several days asso ciated with increasing shortness of breath in the ED she was noted to be hypoxic requiring oxygen supplementation. Laboratory studies showed WBC of 5.1 hemoglobin of 9.6 creatinine 2.4 baseline of 1.4. P 759 troponin was less than 0.012. Influenza RSV and COVID swab was negative. ABG 7.45/27/80/18. Chest x-ray showed diffuse bilateral pulmonary infiltrates suggesting pneumonia and/or pulmonary edema. History of COPD and history of lung fibrosis. Was started on ofev which she did not tolerate and was planned to be switch to another agent which she has not started yet. Follows with Dr. Chin [facility] Pulmonary. Patient was started on scheduled nebulizer and Solu-Medrol in the ED. suspected COPD exacerbation with pneumonia. On ceftriaxone azithromycin possible interstitial lung disease flare. Continue on steroid. Echocardiogram was performed on 09/05/2024 with findings of apical variant hypertrophic cardiomyopathy. She will continue to follow-up with Cardiology with regard to this With regard to hypoxia CEA was still hypoxic with exertion and required oxygen supplementation at the time. She however significantly improved with steroid treatment and antibiotic. CT chest showed findings of interstitial lung disease which seemed stable. She will be discharged on steroid course along with oral antibiotics. Switch to oral steroid MYKE on CKD stage 3 IV hydration and was stopped. BNP was 5950. Renal function continues to improve Chronic anemia DVT prophylaxis heparin subQ Code status do not resuscitate Patient has severe protein calorie malnutrition.Patient has had 11 kg weight loss since November. Dietitian for nutritional supplement the recommendations. Subjective Date/time seen: 09/05/24 15:48 Interval history: No overnight events. Feeling much better. Still feels short of breath with exertion. Denies any leg swelling. Review of Systems Review of Systems: All systems reviewed & are unremarkable except as noted in HPI and below Exam Narrative: GENERAL: Well-appearing, thin built, and in no acute distress. HEAD: Normocephalic, atraumatic. EYES: PERRLA and EOMI. ENT: Nares clear, no rhinorrhea or epistaxis. Mucous membranes moist. NECK: Supple. CHEST: Coarse breath sounds occasional wheezes. No respiratory distress. HEART: Regular rate and rhythm. No murmur heard. Normal peripheral pulses. ABDOMEN: Soft, nontender, nondistended, normal active bowel sounds. EXTREMITIES: Normal range of motion. No edema. SKIN: Warm, dry, no rash. NEURO: No focal deficits. Alert and oriented x3. PSYCH: Normal mood and affect. Objective Data Vital Signs Vital Signs: Vital Signs - 24 hr 09/04/24 16:00 09/04/24 16:00 09/04/24 17:08 Temperature Pulse Rate 86 86 86 Respiratory Rate 20 Blood Pressure Pulse Oximetry 99 Oxygen Delivery Room Air Fraction of Inspired Oxygen 32 09/04/24 16:00 09/04/24 19:25 09/04/24 20:00 Temperature 97.8 F 98.7 F Pulse Rate 88 91 Respiratory Rate 18 20 Blood Pressure 173/92 H 172/78 H Pulse Oximetry 98 97 Oxygen Delivery Room Air Fraction of Inspired Oxygen 09/04/24 21:20 09/04/24 20:00 09/04/24 21:52 Temperature Pulse Rate 87 84 Respiratory Rate 20 Blood Pressure Pulse Oximetry 98 Oxygen Delivery Room Air Fraction of Inspired Oxygen 09/04/24 21:56 09/04/24 22:00 09/04/24 22:05 Temperature Pulse Rate 84 92 88 Respiratory Rate 20 Blood Pressure Pulse Oximetry 96 Oxygen Delivery Room Air Fraction of Inspired Oxygen 21 09/04/24 23:57 09/05/24 00:00 09/05/24 00:00 Temperature 98.2 F Pulse Rate 86 98 Respiratory Rate 20 Blood Pressure 158/87 H Pulse Oximetry 99 99 Oxygen Delivery Room Air Fraction of Inspired Oxygen 09/05/24 02:00 09/05/24 04:00 09/05/24 04:00 Temperature 98.0 F Pulse Rate 85 84 84 Respiratory Rate 20 Blood Pressure 150/73 H Pulse Oximetry 98 Oxygen Delivery Fraction of Inspired Oxygen 09/05/24 04:00 09/05/24 06:00 09/05/24 07:20 Temperature 97.8 F Pulse Rate 81 75 Respiratory Rate 20 Blood Pressure 186/95 H Pulse Oximetry 97 Oxygen Delivery Room Air Fraction of Inspired Oxygen 09/05/24 08:19 09/05/24 08:19 09/05/24 08:36 Temperature Pulse Rate 88 88 82 Respiratory Rate 18 18 20 Blood Pressure Pulse Oximetry 94 Oxygen Delivery Room Air Fraction of Inspired Oxygen 09/05/24 08:00 09/05/24 12:00 09/05/24 12:00 Temperature 97.4 F L Pulse Rate 93 Respiratory Rate 18 Blood Pressure 152/88 H Pulse Oximetry 97 Oxygen Delivery Room Air Room Air Fraction of Inspired Oxygen 09/05/24 13:25 09/05/24 13:25 09/05/24 08:00 Temperature Pulse Rate 84 77 Respiratory Rate 20 Blood Pressure Pulse Oximetry 95 Oxygen Delivery Room Air Fraction of Inspired Oxygen 09/05/24 12:00 09/05/24 10:00 Temperature Pulse Rate 73 74 Respiratory Rate Blood Pressure Pulse Oximetry Oxygen Delivery Fraction of Inspired Oxygen Intake/Output Intake/Output: Intake & Output 09/02/24 09/03/24 09/04/24 09/05/24 23:59 23:59 23:59 23:59 Intake Total 2306 2208 1968 910 Output Total 400 1200 600 700 Balance 1906 1008 1368 210 Meds/Results Medications: Active Medications Generic Name Dose Route Start Last Admin Trade Name Freq PRN Reason Stop Dose Admin Acetaminophen 650 mg 09/02/24 03:37 09/03/24 22:36 Acetaminophen 325 Mg Tablet PO 650 mg Q4H PRN Administration Mild Pain (1-3) or Fever Albuterol/Ipratropium 3 ml 09/02/24 08:00 09/05/24 13:22 Ipratropium 0.5 Mg/Albuterol Sulfate 2.5 Mg Ampul.Neb 3 Ml INHALATION 3 ml Q6HRT DORCAS Administration Atorvastatin Calcium 20 mg 09/02/24 09:00 09/05/24 10:40 Atorvastatin 20 Mg Tablet PO 20 mg DAILY DORCAS Administration Azithromycin 500 mg 09/06/24 06:00 Azithromycin 250 Mg Tablet PO 09/06/24 06:01 ONCE ONE Calcium Carbonate 200 mg 09/03/24 20:18 09/03/24 23:56 Calcium Carbonate (Tums) 500 Mg (200 Mg Elemental) PO 200 mg Q6H PRN Administration Indigestion Cefdinir 300 mg 09/06/24 06:00 Cefdinir 300 Mg Capsule PO 09/06/24 21:01 Q12HR DORCAS Clopidogrel Bisulfate 75 mg 09/02/24 09:00 09/05/24 10:40 Clopidogrel Bisulfate 75 Mg Tablet PO 75 mg DAILY DORCAS Administration Famotidine 20 mg 09/03/24 21:00 09/05/24 10:40 Famotidine 20 Mg Tablet PO 20 mg Q12HR DORCAS Administration Fluoxetine HCl 40 mg 09/02/24 09:00 09/05/24 10:40 Fluoxetine Hcl 20 Mg Capsule PO 40 mg DAILY DORCAS Administration Fluticasone Propionate 1 spray 09/02/24 09:00 09/05/24 10:40 Fluticasone Propionate 0.05% Na Spr 16 Gm Btl (*Bkc) NASAL 1 spray BID DORCAS Administration Guaifenesin 1,200 mg 09/04/24 21:00 09/05/24 10:40 Guaifenesin 12 Hr 600 Mg Tabcr PO 1,200 mg Q12HR DORCAS Administration Heparin Sodium (Porcine) 5,000 units 09/02/24 09:00 09/05/24 10:39 Heparin Sodium 5,000 Units/Ml Vial SUB-Q 5,000 units Q12HR DORCAS Administration Hydralazine HCl 10 mg 09/03/24 00:25 09/03/24 23:57 Hydralazine Hcl 20 Mg/Ml Vial IV PUSH 10 mg Q4H PRN Administration Blood Pressure - High Methylprednisolone Sodium Succinate 60 mg 09/02/24 08:00 09/05/24 13:55 Methylprednisolone Sod Succ 125 Mg Vial IV PUSH 60 mg Q8HR DORCAS Administration Montelukast Sodium 10 mg 09/02/24 09:00 09/05/24 10:39 Montelukast Sodium 10 Mg Tablet PO 10 mg DAILY DORACS Administration Perflutren Lipid Microsphere 0 ml 09/04/24 13:13 Perflutren Lipid Microspheres 1.5 Ml Vial Diluted To 10 Ml Total Volume IV PUSH 09/07/24 13:13 ONCE PRN adequate visualization Protocol Radiology Results: ITS Impressions Chest X-Ray 09/03/24 13:19 IMPRESSION: Extensive chronic bilateral patchy interstitial changes suggesting extensive chronic bilateral pulmonary interstitial fibrosis. Superimposed pneumonia is not excluded. Clinical correlation is advised. Chest CT 09/04/24 13:06 IMPRESSION: 1. Chronic interstitial lung disease in a pattern of usual interstitial pneumonia (UIP). Labs Labs: Laboratory Results - last 24 hr 09/05/24 05:04 WBC 4.5 RBC 2.34 L Hgb 8.1 L Hct 24.4 L MCV 104.3 H MCH 34.6 H MCHC 33.2 RDW 13.9 Plt Count 174 MPV 10.2 Immature Gran % (Auto) 1.1 H Neut % (Auto) 74.2 H Lymph % (Auto) 13.5 L [place] % (Auto) 11.2 H Eos % (Auto) 0.0 Baso % (Auto) 0.0 L Lymph # (Auto) 0.60 L [place] # (Auto) 0.5 Eos # (Auto) 0.0 Baso # (Auto) 0.0 Abs Immat Gran (auto) 0.05 H Absolute Neuts (auto) 3.3 Absolute Nucleated RBC 0.000 Nucleated RBC % 0.0 Sodium 136 L Potassium 4.1 Chloride 109 H Carbon Dioxide 23 Anion Gap 4 BUN 46 H Creatinine 1.30 H Estim Creat Clear Calc 29 Estimated GFR 49 L Glucose 167 H Calcium 7.7 L Magnesium 1.6 Total Bilirubin 0.3 AST 38 H ALT 24 Alkaline Phosphatase 90 Total Protein 6.0 L Albumin 2.6 L
--- NOTE | 2024-09-05 16:00 | HOMEO2EVAL ---
Evaluation was performed at [facility] Home Oxygen Evaluation RC: Home Oxygen (O2) Evaluation Start: 09/05/24 12:29 Freq: ONCE Status: Active Protocol: RPE Activity Type Activity Date Activity User E-sign Co-sign Detail Recorded Client Recorded Date Recorded By Document 09/05/24 14:00 DANIEL [email or web address] 09/05/24 16:00 DANIEL Document 09/05/24 14:05 DANIEL [email or web address] 09/05/24 16:00 DANIEL Document 09/05/24 14:10 DANIEL [email or web address] 09/05/24 16:00 DANIEL Document 09/05/24 14:11 DANIEL [email or web address] 09/05/24 16:00 DANIEL Document 09/05/24 14:15 DANIEL [email or web address] 09/05/24 16:00 DANIEL 09/05/24 09/05/24 09/05/24 14:00 14:05 14:10 Home O2 Evaluation [Oxygen] -Test Phase Resting Exercise Exercise -Oxygen Delivery Room Air Room Air Nasal Cannula -Oxygen Flow Rate (L/min) 1 [Pulse Oximetry] -Pulse Oximetry (90-100 %) 96 87 L 88 L [Pulse Rate] -Pulse Rate (60-100 beats/min) 88 107 H [Comments] -Home Oxygen Evaluation Comments [Charges] -Evaluation Charges O2 Evaluation by Pulmonary 09/05/24 09/05/24 14:11 14:15 Home O2 Evaluation [Oxygen] -Test Phase Exercise Resting -Oxygen Delivery Nasal Cannula Room Air -Oxygen Flow Rate (L/min) 2 [Pulse Oximetry] -Pulse Oximetry (90-100 %) 91 95 [Pulse Rate] -Pulse Rate (60-100 beats/min) 105 H 89 [Comments] -Home Oxygen Evaluation Comments Pt requires 2l with activity [Charges] -Evaluation Charges
[2024-09-05] MEDS: ACETAMINOPHEN 325 MG TABLET 650 MG PO (20:06)
[2024-09-06] VITALS (11 sets, daily range): BP systolic 150–190; BP diastolic 74–93; PULSE 68–84; RESP 16–20; TEMP 36.4–36.5; O2SAT 97–99
[2024-09-06] MEDS: IPRATROPIUM 0.5 MG/ALBUTEROL SULFATE 2.5 MG AMPUL.NEB 3 ML INHALATION ×3 (02:47→13:28)
[2024-09-06] MEDS: hydrALAZINE HCL 20 MG/ML VIAL 10 MG IV PUSH (04:57)
[2024-09-06] MEDS: AZITHROMYCIN 250 MG TABLET 500 MG PO (04:58)
[2024-09-06] MEDS: CEFDINIR 300 MG CAPSULE PO (04:59)
--- NOTE | 2024-09-06 08:38 | PCRCNOTE ---
Home o2 arranged with [facility]. Pt did not D/C Wednesday 09/05. Will await PT/OT and possible Home Health. Pt has tank in room for transport home when ready to go.
[2024-09-06] MEDS: predniSONE 20 MG TABLET 40 MG PO (08:47)
[2024-09-06] MEDS: CLOPIDOGREL BISULFATE 75 MG TABLET PO (08:47)
[2024-09-06] MEDS: FLUoxetine HCL 20 MG CAPSULE 40 MG PO (08:47)
[2024-09-06] MEDS: ATORVASTATIN 20 MG TABLET PO (08:47)
[2024-09-06] MEDS: FAMOTIDINE 20 MG TABLET PO (08:47)
[2024-09-06] MEDS: guaiFENesin 12 HR 600 MG TABCR 1200 MG PO (08:47)
[2024-09-06] MEDS: MONTELUKAST SODIUM 10 MG TABLET PO (08:48)
[2024-09-06] MEDS: HEPARIN SODIUM 5,000 UNITS/ML VIAL 5000 UNITS SUB-Q (08:49)
[2024-09-06] MEDS: FLUTICASONE PROPIONATE 0.05% NA SPR 16 GM BTL (*BKC) 1 SPRAY NASAL ×2 (08:49→16:49)
== END 2024-09-06 18:10 | disposition home or self-care (01) | DRG 193 ==
LOC: ANHED 03:38 → ANHIMU 04:28 → ANH2MED 09-05 19:23
PROVIDERS: Admitting Provider Internal Medicine; Emergency Provider Emergency Medicine; PCP Internal Medicine; Visit Provider Internal Medicine
DX: J18.9 Pneumonia, unspecified organism (principal); E43 Unspecified severe protein-calorie malnutrition; J96.01 Acute respiratory failure with hypoxia; J44.0 Chronic obstructive pulmonary disease with (acute) lower respiratory infection; J44.1 Chronic obstructive pulmonary disease with (acute) exacerbation; N17.9 Acute kidney failure, unspecified; I69.351 Hemiplegia and hemiparesis following cerebral infarction affecting right dominant side; Z68.1 Body mass index [BMI] 19.9 or less, adult; I12.9 Hypertensive chronic kidney disease with stage 1 through stage 4 chronic kidney disease, or unspecified chronic kidney disease; N18.32 Chronic kidney disease, stage 3b; D63.1 Anemia in chronic kidney disease; E78.5 Hyperlipidemia, unspecified; Z96.653 Presence of artificial knee joint, bilateral; Z20.822 Contact with and (suspected) exposure to COVID-19; Z87.891 Personal history of nicotine dependence; Z79.02 Long term (current) use of antithrombotics/antiplatelets
CPT/HCPCS: 36415; 36600; 71045; 71250; 80053; 82607; 82728; 82746; 82805; 83540; 83550; 83605; 83735; 83880; 84145; 84484; 85018; 85025; 85046; 85610; 85730; 87040; 87637; 93005; 93306; 94618; 94640; 96361; 96365; 96366; 96372; 96375; 96376; 97161; 99285; A9270; G0378; J0360; J0456; J0696; J1644; J2919; J7030; J7512